=== PATIENT | male | born 1965 | race African-American/Black ===

== ENCOUNTER 2018-01-10 13:23 | Emergency (ER) | payer MEDICAID ==
[~2018-01-10] VITALS: Ht 177.8 cm; Wt 80.0 kg
[2018-01-10] MEDS ORDERED: AMLO2.5T45 PO (13:29)
[2018-01-10 15:43] LABS: BASOPHILS % 1.3 % (0.0-2.0); EOSINOPHILS % 0.8 % (0.0-5.0); HEMATOCRIT. 41.4 % (42.0-52.0); HEMOGLOBIN. 13.4 g/dL (14.0-18.0); LYMPHOCYTES % 42.3 % (20.0-50.0); MEAN CORPUSCULAR HEMOGLOBIN 24.4 pg (28.0-32.0); MEAN CORPUSCULAR VOLUME 75.6 fL (80.0-94.0); MEAN PLATELET VOLUME 7.5 fl (7.4-10.4); MONOCYTES % 10.8 % (2.0-8.0); NEUTROPHILS % 44.8 % (40.0-76.0); PLATELET 237 x1000/uL (130-400); RED BLOOD CELL COUNT 5.48 mill/uL (4.7-6.1); RED CELL DISTRIBUTION WIDTH 16.7 % (11.6-14.6)
[2018-01-10 15:48] LABS: CHLORIDE 100 mEq/L (98-107)
[2018-01-10 15:49] LABS: PROTHROMBIN TIME 9.9 sec (9.4-11.6)
[2018-01-10 15:53] LABS: ETHANOL BLOOD 266 mg/dL
[2018-01-10] MEDS ORDERED: IBUPROFEN 600MG TABLET PO STA (19:05)
[2018-01-10 20:54] VITALS: BP 139/60
== END 2018-01-10 20:50 | disposition home or self-care (01) ==
LOC: ER 13:44
DX: R07.89 Other chest pain (principal); T51.0X1A Toxic effect of ethanol, accidental (unintentional), initial encounter; I25.2 Old myocardial infarction; D57.1 Sickle-cell disease without crisis; R94.31 Abnormal electrocardiogram [ECG] [EKG]; Y90.8 Blood alcohol level of 240 mg/100 ml or more; Y92.018 Other place in single-family (private) house as the place of occurrence of the external cause
CPT/HCPCS: 36415; 71045; 80053; 83880; 84484; 85025; 85044; 85610; 93005; 99285; G0482; Z7610

== ENCOUNTER 2018-01-19 13:05 | Emergency (ER) | payer MEDICAID ==
[~2018-01-19] VITALS: Ht 172.7 cm; Wt 75.0 kg
[~2018-01-19 13:05] MED LIST: AMLO2.5T45 PO
[2018-01-19 13:07] VITALS: BP 127/86
== END 2018-01-19 18:55 | disposition left against medical advice (07) ==
LOC: ER 13:27
DX: R11.0 Nausea (principal); Z53.21 Procedure and treatment not carried out due to patient leaving prior to being seen by health care provider

== ENCOUNTER 2018-06-15 14:43 | Emergency (ER) | payer MEDICAID ==
[~2018-06-15] VITALS: Ht 180.3 cm; Wt 76.0 kg
[2018-06-15 14:47] VITALS: BP 127/96
== END 2018-06-15 15:25 | disposition left against medical advice (07) ==
LOC: ER 15:16
DX: Z53.21 Procedure and treatment not carried out due to patient leaving prior to being seen by health care provider (principal)

== ENCOUNTER 2018-06-17 10:02 | Emergency (ER) | payer MEDICAID ==
[~2018-06-17] VITALS: Ht 175.3 cm; Wt 78.0 kg
[2018-06-17 10:07] VITALS: BP 137/96
== END 2018-06-17 11:10 | disposition left against medical advice (07) ==
LOC: ER 11:10
DX: F10.129 Alcohol abuse with intoxication, unspecified (principal); Z53.21 Procedure and treatment not carried out due to patient leaving prior to being seen by health care provider

== ENCOUNTER 2018-06-17 11:22 | Emergency (ER) | payer MEDICAID ==
[~2018-06-17] VITALS: Ht 175.3 cm; Wt 70.0 kg
[2018-06-17] MEDS ORDERED: SODIUM CHLORIDE 0.9% 1,000 ML IV ONE (11:45)
[2018-06-17 13:16] VITALS: BP 132/76
[2018-06-17 13:53] LABS: *AMPHETAMINES SCREEN URINE NEGATIVE (NEGATIVE); *BARBITURATES SCREEN URINE NEGATIVE (NEGATIVE); *BENZODIAZEPINES SCREEN URINE NEGATIVE (NEGATIVE); *COCAINE SCREEN URINE NEGATIVE (NEGATIVE); METHADONE URINE SCREEN NEGATIVE (NEGATIVE)
[2018-06-17 13:54] LABS: CANNABINOID URINE SCREEN NEGATIVE (NEGATIVE); OPIATES URINE SCREEN NEGATIVE (NEGATIVE); PHENCYCLIDINE URINE SCREEN NEGATIVE (NEGATIVE)
== END 2018-06-17 13:30 | disposition left against medical advice (07) ==
LOC: ER 11:22
DX: F10.129 Alcohol abuse with intoxication, unspecified (principal); I10 Essential (primary) hypertension; D57.1 Sickle-cell disease without crisis; Y90.8 Blood alcohol level of 240 mg/100 ml or more
CPT/HCPCS: 36415; 80305; 99284; G0482; J7030

== ENCOUNTER 2018-06-28 11:03 | Emergency (ER) | payer MEDICAID ==
[~2018-06-28] VITALS: Ht 170.2 cm; Wt 75.0 kg
[2018-06-28] MEDS: SODIUM CHLORIDE 0.9% 1,000 ML IV ONE ×2 (11:36→12:02)
[2018-06-28] MEDS: ONDANSETRON HCL 4MG/2ML INJ IV STA ×2 (11:36→12:02)
[2018-06-28 12:08] LABS: BASOPHILS % 1.4 % (0.0-2.0); EOSINOPHILS % 0.2 % (0.0-5.0); HEMOGLOBIN. 12.1 g/dL (14.0-18.0); LYMPHOCYTES % 36.3 % (20.0-50.0); MEAN CORPUSCULAR HEMOGLOBIN 24.7 pg (28.0-32.0); MEAN CORPUSCULAR VOLUME 75.4 fL (80.0-94.0); MEAN PLATELET VOLUME 7.5 fl (7.4-10.4); NEUTROPHILS % 53.1 % (40.0-76.0); PLATELET 281 x1000/uL (130-400); RED BLOOD CELL COUNT 4.91 mill/uL (4.7-6.1); RED CELL DISTRIBUTION WIDTH 17.7 % (11.6-14.6)
[2018-06-28 12:15] LABS: CHLORIDE 104 mEq/L (98-107); CLARITY URINE CLEAR (CLEAR); COLOR URINE YELLOW (YELLOW); KETONES URINE NEGATIVE (NEGATIVE); LEUKOCYTE ESTERASE URINE TRACE (NEGATIVE); NITRITE URINE NEGATIVE (NEGATIVE); OCCULT BLOOD URINE 1+ (NEGATIVE); PH URINE 5.5 (4.5-8.0); PROTEIN URINE TRACE (NEGATIVE); SPECIFIC GRAVITY URINE 1.004 (1.005-1.030); UROBILINOGEN URINE 0.2 E.U./dL (0.2-1.0)
[2018-06-28 12:17] LABS: INR 0.9; PROTHROMBIN TIME 9.5 sec (9.1-11.1)
[2018-06-28 12:40] LABS: ETHANOL BLOOD 332 mg/dL
[2018-06-28] MEDS ORDERED: IOHEXOL-300 100 ML BOTTLE ONE (14:34)
[2018-06-28] MEDS ORDERED: ACETAMINOPHEN 325MG TABLET PO NR (17:00)
[2018-06-28 17:15] VITALS: BP 130/85
== END 2018-06-28 17:30 | disposition home or self-care (01) ==
LOC: ER 11:14
DX: R07.9 Chest pain, unspecified (principal); R10.9 Unspecified abdominal pain; R51 Headache; F10.129 Alcohol abuse with intoxication, unspecified; I10 Essential (primary) hypertension; F17.210 Nicotine dependence, cigarettes, uncomplicated; R11.2 Nausea with vomiting, unspecified; W19.XXXA Unspecified fall, initial encounter; Y93.89 Activity, other specified; Y92.89 Other specified places as the place of occurrence of the external cause; Y99.8 Other external cause status
CPT/HCPCS: 36415; 70450; 71260; 74177; 80053; 81003; 83690; 84484; 85025; 85610; 93005; 96361; 96374; 99285; G0482; J2405; J7030; Q9967; Z7610

== ENCOUNTER 2018-07-21 09:25 | Emergency (ER) | payer MEDICAID ==
[~2018-07-21] VITALS: Ht 172.7 cm; Wt 75.0 kg
[2018-07-21 09:27] VITALS: BP 148/97
== END 2018-07-21 10:43 | disposition left against medical advice (07) ==
LOC: ER 09:33
DX: Z53.21 Procedure and treatment not carried out due to patient leaving prior to being seen by health care provider (principal)

== ENCOUNTER 2018-07-21 11:19 | Emergency (ER) | payer MEDICAID ==
[~2018-07-21] VITALS: Ht 172.7 cm; Wt 70.0 kg
[2018-07-21 11:23] VITALS: BP 135/94
== END 2018-07-21 13:30 | disposition left against medical advice (07) ==
LOC: ER 11:56
DX: Z53.21 Procedure and treatment not carried out due to patient leaving prior to being seen by health care provider (principal)

== ENCOUNTER 2018-07-21 14:35 | Emergency (ER) | payer MEDICAID ==
[~2018-07-21] VITALS: Ht 172.7 cm; Wt 70.0 kg
[2018-07-21 14:42] VITALS: BP 138/75
== END 2018-07-21 17:06 | disposition left against medical advice (07) ==
LOC: ER 15:03
DX: Z53.21 Procedure and treatment not carried out due to patient leaving prior to being seen by health care provider (principal)

== ENCOUNTER 2018-07-21 19:04 | Inpatient (IN) | payer MEDICAID ==
[~2018-07-21] VITALS: Ht 167.6 cm; Wt 69.9 kg
[2018-07-21] MEDS ORDERED: SODIUM CHLORIDE 0.9% 1,000 ML IV ONE (20:56)
[2018-07-21 22:04] LABS: PROTHROMBIN TIME 9.6 sec (9.1-11.1)
[2018-07-21 22:08] LABS: CHLORIDE 105 mEq/L (98-107)
[2018-07-21 22:09] LABS: BASOPHILS % 1.8 % (0.0-2.0); EOSINOPHILS % 0.6 % (0.0-5.0); HEMATOCRIT. 36.6 % (42.0-52.0); HEMOGLOBIN. 11.7 g/dL (14.0-18.0); LYMPHOCYTES % 26.2 % (20.0-50.0); MEAN CORPUSCULAR HEMOGLOBIN 24.4 pg (28.0-32.0); MEAN CORPUSCULAR VOLUME 76.7 fL (80.0-94.0); MEAN PLATELET VOLUME 7.2 fl (7.4-10.4); MONOCYTES % 6.7 % (2.0-8.0); NEUTROPHILS % 64.7 % (40.0-76.0); PLATELET 289 x1000/uL (130-400); RED BLOOD CELL COUNT 4.77 mill/uL (4.7-6.1); RED CELL DISTRIBUTION WIDTH 17.6 % (11.6-14.6)
[2018-07-21 22:16] LABS: ETHANOL BLOOD 352 mg/dL
[2018-07-22] MEDS ORDERED: SODIUM CHLORIDE 0.9% 1,000 ML IV ONE (03:00)
[2018-07-22] MEDS ORDERED: ASPIRIN 81MG TABLET PO ONE (03:00)
[2018-07-22 03:10] LABS: CLARITY URINE CLEAR (CLEAR); COLOR URINE YELLOW (YELLOW); KETONES URINE NEGATIVE (NEGATIVE); LEUKOCYTE ESTERASE URINE NEGATIVE (NEGATIVE); NITRITE URINE NEGATIVE (NEGATIVE); OCCULT BLOOD URINE 1+ (NEGATIVE); PROTEIN URINE TRACE (NEGATIVE); UROBILINOGEN URINE 0.2 E.U./dL (0.2-1.0)
[2018-07-22 03:31] LABS: *AMPHETAMINES SCREEN URINE NEGATIVE (NEGATIVE); *BARBITURATES SCREEN URINE NEGATIVE (NEGATIVE); *BENZODIAZEPINES SCREEN URINE NEGATIVE (NEGATIVE); *COCAINE SCREEN URINE PRESUMTIVE POSITIVE (NEGATIVE)
[2018-07-22 03:32] LABS: CANNABINOID URINE SCREEN NEGATIVE (NEGATIVE); METHADONE URINE SCREEN NEGATIVE (NEGATIVE); OPIATES URINE SCREEN NEGATIVE (NEGATIVE); PHENCYCLIDINE URINE SCREEN NEGATIVE (NEGATIVE)
[2018-07-22 05:35] VITALS: BP 140/86
[2018-07-22 06:18] VITALS: BP 140/86
[2018-07-22] MEDS ORDERED: ACETAMINOPHEN 325MG TABLET PO PRN (07:30)
[2018-07-22] MEDS ORDERED: LORAZEPAM 2MG/ML CPJ IV PRN (07:30)
[2018-07-22] MEDS ORDERED: IPRATROPIUM/ALBUTEROL 0.5-3(2.5)MG/3ML NEB INH PRN (07:30)
[2018-07-22] MEDS ORDERED: CLONIDINE 0.1MG TABLET PO PRN (07:30)
[2018-07-22 08:00] VITALS: BP 156/89
[2018-07-22] MEDS: ONDANSETRON HCL 4MG/2ML INJ IV PRN ×2 (08:56→19:55)
[2018-07-22] MEDS: HYDROCODONE/ACETAMINOPHEN 5/325MG TABLET PO PRN ×3 (08:57→17:37)
[2018-07-22] MEDS: LORAZEPAM 2MG/ML CPJ IV PRN ×2 (08:57→19:55)
[2018-07-22] MEDS ORDERED: MVI, ADULT NO.1 10 ML, FOLIC ACID 1 MG, THIAMINE HCL 100 MG in SODIUM CHLORIDE 0.9% 1,0... IV ONE ×4 (10:00)
[2018-07-22 11:08] LABS: VITAMIN B12 SERUM 487 pg/mL (211-911)
[2018-07-22 12:00] VITALS: BP 158/134
[2018-07-22] MEDS: AMLODIPINE 2.5MG TABLET PO SCH ×2 (12:20→20:32)
[2018-07-22 12:21] LABS: FERRITIN 229 ng/mL (22-322)
[2018-07-22 12:32] LABS: HEPATITIS B SURFACE ANTIGEN NEGATIVE
[2018-07-22] MEDS: CHLORDIAZEPOXIDE 25MG CAPSULE PO SCH ×2 (12:53→21:44)
[2018-07-22 12:59] LABS: HEPATITIS B CORE AB IGM NEGATIVE
[2018-07-22 13:01] LABS: HEPATITIS A AB IGM NEGATIVE (NEGATIVE)
[2018-07-22 13:32] LABS: AMMONIA 27 uMol/L (<32)
[2018-07-22 16:00] VITALS: BP 149/91
[2018-07-22 20:00] VITALS: BP 117/87
[2018-07-23] VITALS: BP 145/97
[2018-07-23 04:00] VITALS: BP 142/99
[2018-07-23] MEDS: CHLORDIAZEPOXIDE 25MG CAPSULE PO SCH (05:29)
[2018-07-23] MEDS: HYDROCODONE/ACETAMINOPHEN 5/325MG TABLET PO PRN (06:27)
[2018-07-23 06:48] VITALS: BP_SYST 109; BP_SYST 122; BP_DIAS 80; BP_DIAS 83; BP_DIAS 93
[2018-07-23 07:42] LABS: BASOPHILS % 1.2 % (0.0-2.0); EOSINOPHILS % 2.5 % (0.0-5.0); HEMATOCRIT. 35.1 % (42.0-52.0); HEMOGLOBIN. 11.3 g/dL (14.0-18.0); LYMPHOCYTES % 23.5 % (20.0-50.0); MEAN CORPUSCULAR HEMOGLOBIN 24.8 pg (28.0-32.0); MEAN PLATELET VOLUME 7.9 fl (7.4-10.4); MONOCYTES % 13.3 % (2.0-8.0); NEUTROPHILS % 59.5 % (40.0-76.0); PLATELET 277 x1000/uL (130-400); RED BLOOD CELL COUNT 4.57 mill/uL (4.7-6.1); RED CELL DISTRIBUTION WIDTH 17.4 % (11.6-14.6)
[2018-07-23 08:00] VITALS: BP 137/95
[2018-07-23] MEDS: AMLODIPINE 2.5MG TABLET PO SCH (09:00)
[2018-07-23 09:49] LABS: CHLORIDE 100 mEq/L (98-107)
[2018-07-23 10:01] LABS: HDL CHOLESTEROL 119 mg/dL (40-59); LDL CHOLESTEROL 53 mg/dL (5-100)
== END 2018-07-23 09:05 | disposition left against medical advice (07) | DRG 469 ==
LOC: ER 19:04 → 8WST 07-22 02:00 → ENRESERV 07-22 02:44
PROVIDERS: ADMIT Internal Medicine; ATTEND Internal Medicine
DX: N17.9 Acute kidney failure, unspecified (principal); F10.231 Alcohol dependence with withdrawal delirium; E87.2 Acidosis; G90.8 Other disorders of autonomic nervous system; D57.1 Sickle-cell disease without crisis; Y90.9 Presence of alcohol in blood, level not specified; I10 Essential (primary) hypertension; F14.10 Cocaine abuse, uncomplicated; Z72.0 Tobacco use; Z53.21 Procedure and treatment not carried out due to patient leaving prior to being seen by health care provider; F10.129 Alcohol abuse with intoxication, unspecified
CPT/HCPCS: 36415; 70551; 71045; 80048; 80061; 80305; 82140; 82270; 82550; 82553; 82607; 82728; 82746; 83540; 83550; 83605; 83615; 83735; 83880; 84145; 84443; 84484; 85044; 86705; 86709; 86803; 87340; 93005; 93306; 93880; 96360; 96361; 99285; G0482; J2060; J2405; J3411; J3490; J7030

== ENCOUNTER 2018-09-17 00:09 | Emergency (ER) | payer MEDICAID ==
[~2018-09-17] VITALS: Ht 182.9 cm; Wt 82.0 kg
[2018-09-17] MEDS ORDERED: ACETAMINOPHEN 325MG TABLET PO ONE (00:45)
[2018-09-17 01:45] LABS: BASOPHILS % 1.1 % (0.0-2.0); HEMOGLOBIN. 11.7 g/dL (14.0-18.0); LYMPHOCYTES % 12.9 % (20.0-50.0); MEAN CORPUSCULAR VOLUME 76.8 fL (80.0-94.0); MEAN PLATELET VOLUME 8.1 fl (7.4-10.4); MONOCYTES % 8.1 % (2.0-8.0); NEUTROPHILS % 77.9 % (40.0-76.0); PLATELET 281 x1000/uL (130-400); RED BLOOD CELL COUNT 4.69 mill/uL (4.7-6.1); RED CELL DISTRIBUTION WIDTH 16.7 % (11.6-14.6)
[2018-09-17 01:51] LABS: CHLORIDE 98 mEq/L (98-107)
[2018-09-17 02:10] LABS: ETHANOL BLOOD 372 mg/dL
[2018-09-17] MEDS ORDERED: IBUPROFEN 400MG TABLET PO ONE (04:30)
[2018-09-17 07:09] VITALS: BP 119/81
== END 2018-09-17 07:10 | disposition home or self-care (01) ==
LOC: ER 00:09
DX: F10.229 Alcohol dependence with intoxication, unspecified (principal); Y90.8 Blood alcohol level of 240 mg/100 ml or more; M54.5 Low back pain; R07.89 Other chest pain; F17.200 Nicotine dependence, unspecified, uncomplicated; F14.10 Cocaine abuse, uncomplicated; I10 Essential (primary) hypertension
CPT/HCPCS: 36415; 71045; 80053; 84484; 85025; 93005; 99284; G0482

== ENCOUNTER 2018-10-07 03:12 | Emergency (ER) | payer MEDICAID ==
[~2018-10-07] VITALS: Ht 177.8 cm; Wt 77.0 kg
[2018-10-07] MEDS ORDERED: SODIUM CHLORIDE 0.9% 1,000 ML IV ONE (04:19)
[2018-10-07] MEDS ORDERED: ONDANSETRON HCL 4MG/2ML INJ IV STA (04:19)
[2018-10-07] MEDS ORDERED: FAMOTIDINE 20MG/2ML VIAL IV ONE (04:30)
[2018-10-07 05:02] LABS: BASOPHILS % 0.8 % (0.0-2.0); EOSINOPHILS % 0.2 % (0.0-5.0); HEMOGLOBIN. 12.1 g/dL (14.0-18.0); LYMPHOCYTES % 25.5 % (20.0-50.0); MEAN CORPUSCULAR HEMOGLOBIN 24.8 pg (28.0-32.0); MEAN CORPUSCULAR VOLUME 77.8 fL (80.0-94.0); MEAN PLATELET VOLUME 7.5 fl (7.4-10.4); MONOCYTES % 11.9 % (2.0-8.0); NEUTROPHILS % 61.6 % (40.0-76.0); PLATELET 271 x1000/uL (130-400); RED BLOOD CELL COUNT 4.88 mill/uL (4.7-6.1); RED CELL DISTRIBUTION WIDTH 16.5 % (11.6-14.6)
[2018-10-07 05:09] LABS: CHLORIDE 108 mEq/L (98-107)
[2018-10-07 05:57] LABS: ETHANOL BLOOD 329 mg/dL
[2018-10-07] MEDS ORDERED: FOLIC ACID 1 MG, THIAMINE HCL 100 MG, MVI, ADULT NO.1 10 ML in DEXTROSE 5% WATER 1,000 ML IV ONE ×4 (06:30)
[2018-10-07] MEDS ORDERED: ACETAMINOPHEN 325MG TABLET PO ONE (09:45)
[2018-10-07 10:55] VITALS: BP 140/88
== END 2018-10-07 11:08 | disposition home or self-care (01) ==
LOC: ER 03:12
DX: R07.89 Other chest pain (principal); F10.229 Alcohol dependence with intoxication, unspecified; F14.10 Cocaine abuse, uncomplicated; E11.9 Type 2 diabetes mellitus without complications; I10 Essential (primary) hypertension; D57.1 Sickle-cell disease without crisis; Z79.899 Other long term (current) drug therapy; Y90.8 Blood alcohol level of 240 mg/100 ml or more
CPT/HCPCS: 36415; 71045; 80053; 83880; 84484; 85025; 93005; 96365; 96366; 96375; 99284; G0482; J2405; J3411; J3490; J7030; J7070

== ENCOUNTER 2019-02-17 14:10 | Emergency (ER) | payer MEDICAID | END 2019-02-17 14:20 | disposition left against medical advice (07) | LOC: ER 14:10 | DX: F10.20 Alcohol dependence, uncomplicated (principal); Z53.21 Procedure and treatment not carried out due to patient leaving prior to being seen by health care provider; Y90.9 Presence of alcohol in blood, level not specified ==

== ENCOUNTER 2019-05-12 20:19 | Emergency (ER) | payer MEDICAID ==
[~2019-05-12] VITALS: Ht 175.3 cm; Wt 73.0 kg
[2019-05-12] MEDS ORDERED: LEVETIRACETAM 1000MG/100ML 100 ML IV ONE (21:15)
[2019-05-12 21:39] LABS: BASOPHILS % 1.1 % (0.0-2.0); EOSINOPHILS % 4.5 % (0.0-5.0); HEMOGLOBIN. 11.7 g/dL (14.0-18.0); LYMPHOCYTES % 20.3 % (20.0-50.0); MEAN CORPUSCULAR HEMOGLOBIN 25.2 pg (28.0-32.0); MEAN CORPUSCULAR VOLUME 77.6 fL (80.0-94.0); MONOCYTES % 9.5 % (2.0-8.0); NEUTROPHILS % 64.6 % (40.0-76.0); PLATELET 299 x1000/uL (130-400); RED BLOOD CELL COUNT 4.64 mill/uL (4.7-6.1); RED CELL DISTRIBUTION WIDTH 16.2 % (11.6-14.6)
[2019-05-12 21:44] LABS: CHLORIDE 110 mEq/L (98-107)
[2019-05-12 21:57] LABS: ETHANOL BLOOD 328 mg/dL
[2019-05-12] MEDS ORDERED: DIPHENHYDRAMINE 50MG/ML VIAL IV ONE (22:15)
[2019-05-13 01:14] VITALS: BP 123/85
== END 2019-05-13 01:18 | disposition home or self-care (01) ==
LOC: ER 20:19
DX: G40.909 Epilepsy, unspecified, not intractable, without status epilepticus (principal); Z91.14 Patient's other noncompliance with medication regimen; F10.129 Alcohol abuse with intoxication, unspecified; Y90.8 Blood alcohol level of 240 mg/100 ml or more; F14.10 Cocaine abuse, uncomplicated; F11.10 Opioid abuse, uncomplicated; F17.210 Nicotine dependence, cigarettes, uncomplicated; Z71.6 Tobacco abuse counseling; I10 Essential (primary) hypertension
CPT/HCPCS: 36415; 80053; 80320; 85025; 96365; 96375; 99283; 99406; J1200; J1953; G0480

== ENCOUNTER 2019-06-25 11:25 | Emergency (ER) | payer MEDICAID ==
[~2019-06-25] VITALS: Ht 185.4 cm; Wt 82.0 kg
[2019-06-25] MEDS ORDERED: LEVETIRACETAM 1000MG/100ML 100 ML IV ONE (13:30)
[2019-06-25 14:47] LABS: CLARITY URINE CLEAR (CLEAR); COLOR URINE YELLOW (YELLOW); KETONES URINE NEGATIVE (NEGATIVE); LEUKOCYTE ESTERASE URINE NEGATIVE (NEGATIVE); NITRITE URINE NEGATIVE (NEGATIVE); OCCULT BLOOD URINE 1+ (NEGATIVE); PROTEIN URINE 1+ (NEGATIVE); SPECIFIC GRAVITY URINE 1.008 (1.005-1.030); UROBILINOGEN URINE 0.2 E.U./dL (0.2-1.0)
[2019-06-25 14:59] LABS: BASOPHILS % 0.6 % (0.0-2.0); EOSINOPHILS % 1.5 % (0.0-5.0); HEMATOCRIT. 38.1 % (42.0-52.0); HEMOGLOBIN. 12.3 g/dL (14.0-18.0); LYMPHOCYTES % 23.6 % (20.0-50.0); MEAN CORPUSCULAR HEMOGLOBIN 25.1 pg (28.0-32.0); MEAN PLATELET VOLUME 7.4 fl (7.4-10.4); NEUTROPHILS % 69.3 % (40.0-76.0); PLATELET 321 x1000/uL (130-400); RED BLOOD CELL COUNT 4.88 mill/uL (4.7-6.1); RED CELL DISTRIBUTION WIDTH 16.2 % (11.6-14.6)
[2019-06-25 15:05] LABS: CHLORIDE 107 mEq/L (98-107)
[2019-06-25 15:19] LABS: ETHANOL BLOOD 323 mg/dL
[2019-06-25 15:31] LABS: *AMPHETAMINES SCREEN URINE NEGATIVE (NEGATIVE); PHENCYCLIDINE URINE SCREEN NEGATIVE (NEGATIVE)
[2019-06-25 15:32] LABS: *BARBITURATES SCREEN URINE NEGATIVE (NEGATIVE)
[2019-06-25 15:33] LABS: *BENZODIAZEPINES SCREEN URINE NEGATIVE (NEGATIVE)
[2019-06-25 15:34] VITALS: BP 142/83
[2019-06-25 15:34] LABS: *COCAINE SCREEN URINE NEGATIVE (NEGATIVE); METHADONE URINE SCREEN NEGATIVE (NEGATIVE)
[2019-06-25 15:35] LABS: OPIATES URINE SCREEN NEGATIVE (NEGATIVE)
[2019-06-25 15:36] LABS: CANNABINOID URINE SCREEN NEGATIVE (NEGATIVE)
== END 2019-06-25 15:34 | disposition home or self-care (01) ==
LOC: ER 11:31
DX: R56.9 Unspecified convulsions (principal); F11.10 Opioid abuse, uncomplicated; F14.10 Cocaine abuse, uncomplicated; F31.9 Bipolar disorder, unspecified; F41.9 Anxiety disorder, unspecified; I10 Essential (primary) hypertension; Z88.0 Allergy status to penicillin; Z79.899 Other long term (current) drug therapy; Z99.2 Dependence on renal dialysis
CPT/HCPCS: 36415; 80053; 80305; 80320; 81003; 85025; 96365; 96366; 99283; J1953; G0480

== ENCOUNTER 2019-09-01 14:17 | Emergency (ER) | payer MEDICAID | END 2019-09-01 15:15 | disposition left against medical advice (07) | LOC: ER 14:17 | DX: R10.9 Unspecified abdominal pain (principal); Z53.21 Procedure and treatment not carried out due to patient leaving prior to being seen by health care provider ==

== ENCOUNTER 2019-11-12 19:38 | Emergency (ER) | payer MEDICAID ==
[~2019-11-12] VITALS: Ht 175.3 cm; Wt 73.0 kg
[2019-11-12 23:18] VITALS: BP 134/109
[2019-11-13 00:23] LABS: BASOPHILS % 2.3 % (0.0-2.0); EOSINOPHILS % 1.9 % (0.0-5.0); HEMATOCRIT. 33.7 % (42.0-52.0); HEMOGLOBIN. 11.5 g/dL (14.0-18.0); LYMPHOCYTES % 45.4 % (20.0-50.0); MEAN CORPUSCULAR HEMOGLOBIN 26.3 pg (28.0-32.0); MEAN PLATELET VOLUME 6.7 fl (7.4-10.4); MONOCYTES % 11.5 % (2.0-8.0); NEUTROPHILS % 38.9 % (40.0-76.0); PLATELET 554 x1000/uL (130-400); RED BLOOD CELL COUNT 4.38 mill/uL (4.7-6.1); RED CELL DISTRIBUTION WIDTH 16.8 % (11.6-14.6)
[2019-11-13 00:29] LABS: CHLORIDE 110 mEq/L (98-107); INR 0.9; PROTHROMBIN TIME 10.2 sec (9.6-11.0)
[2019-11-13 00:46] LABS: ETHANOL BLOOD 318 mg/dL
[2019-11-13 00:54] LABS: *AMPHETAMINES SCREEN URINE NEGATIVE (NEGATIVE); *BARBITURATES SCREEN URINE NEGATIVE (NEGATIVE); *BENZODIAZEPINES SCREEN URINE NEGATIVE (NEGATIVE); *COCAINE SCREEN URINE PRESUMTIVE POSITIVE (NEGATIVE); METHADONE URINE SCREEN NEGATIVE (NEGATIVE); OPIATES URINE SCREEN NEGATIVE (NEGATIVE)
[2019-11-13 00:55] LABS: CANNABINOID URINE SCREEN NEGATIVE (NEGATIVE); PHENCYCLIDINE URINE SCREEN NEGATIVE (NEGATIVE)
== END 2019-11-13 05:39 | disposition home or self-care (01) ==
LOC: ER 19:38
DX: F10.229 Alcohol dependence with intoxication, unspecified (principal); F14.10 Cocaine abuse, uncomplicated; R55 Syncope and collapse; R94.5 Abnormal results of liver function studies; R29.1 Meningismus; F11.10 Opioid abuse, uncomplicated; I10 Essential (primary) hypertension; Z98.890 Other specified postprocedural states; Z88.0 Allergy status to penicillin; W18.39XA Other fall on same level, initial encounter; Y93.89 Activity, other specified; Y92.89 Other specified places as the place of occurrence of the external cause; Y99.8 Other external cause status; Y90.8 Blood alcohol level of 240 mg/100 ml or more
CPT/HCPCS: 36415; 71045; 80053; 80305; 80320; 84484; 85025; 93005; 99285; G0480

== ENCOUNTER 2019-11-15 00:17 | Emergency (ER) | payer MEDICAID ==
[~2019-11-15] VITALS: Ht 175.3 cm; Wt 73.0 kg
[2019-11-15] MEDS ORDERED: ACETAMINOPHEN 500MG TABLET PO SCH (00:51)
[2019-11-15 01:02] VITALS: BP 132/90
== END 2019-11-15 01:02 | disposition home or self-care (01) ==
LOC: ER 00:17
DX: M79.641 Pain in right hand (principal); I10 Essential (primary) hypertension; F14.10 Cocaine abuse, uncomplicated; F11.10 Opioid abuse, uncomplicated; Z88.0 Allergy status to penicillin
CPT/HCPCS: 99282

== ENCOUNTER 2019-11-30 09:01 | Emergency (ER) | payer MEDICAID ==
[~2019-11-30] VITALS: Ht 188 cm; Wt 80.0 kg
[2019-11-30 09:05] VITALS: BP 146/100
== END 2019-11-30 09:25 | disposition left against medical advice (07) ==
LOC: ER 09:01
DX: F10.20 Alcohol dependence, uncomplicated (principal); R53.1 Weakness; I10 Essential (primary) hypertension; Y90.9 Presence of alcohol in blood, level not specified
CPT/HCPCS: 99283

== ENCOUNTER 2019-12-04 02:40 | Emergency (ER) | payer MEDICAID, OTHER ==
[~2019-12-04] VITALS: Ht 175.3 cm; Wt 68.0 kg
[2019-12-04 02:59] VITALS: BP 123/90
== END 2019-12-04 07:33 | disposition left against medical advice (07) ==
LOC: ER 02:40
DX: Z53.21 Procedure and treatment not carried out due to patient leaving prior to being seen by health care provider (principal)

== ENCOUNTER 2019-12-21 19:08 | Emergency (ER) | payer MEDICAID, OTHER ==
[~2019-12-21] VITALS: Ht 175.3 cm; Wt 73.8 kg
[2019-12-21] MEDS ORDERED: IBUPROFEN 600MG TABLET PO STA (20:24)
[2019-12-21 20:46] LABS: BASOPHILS % 1.2 % (0.0-2.0); EOSINOPHILS % 4.5 % (0.0-5.0); HEMATOCRIT. 36.6 % (42.0-52.0); LYMPHOCYTES % 45.6 % (20.0-50.0); MEAN CORPUSCULAR HEMOGLOBIN 25.5 pg (28.0-32.0); MEAN CORPUSCULAR VOLUME 77.9 fL (80.0-94.0); MEAN PLATELET VOLUME 7.3 fl (7.4-10.4); MONOCYTES % 12.7 % (2.0-8.0); PLATELET 244 x1000/uL (130-400); RED BLOOD CELL COUNT 4.71 mill/uL (4.7-6.1); RED CELL DISTRIBUTION WIDTH 16.5 % (11.6-14.6)
[2019-12-21 20:47] LABS: CHLORIDE 104 mEq/L (98-107)
[2019-12-21 21:00] LABS: ETHANOL BLOOD 433 mg/dL
[2019-12-21 21:44] LABS: CANNABINOID URINE SCREEN NEGATIVE (NEGATIVE); OPIATES URINE SCREEN NEGATIVE (NEGATIVE); PHENCYCLIDINE URINE SCREEN NEGATIVE (NEGATIVE)
[2019-12-21 21:45] LABS: *AMPHETAMINES SCREEN URINE NEGATIVE (NEGATIVE); *BARBITURATES SCREEN URINE NEGATIVE (NEGATIVE); *BENZODIAZEPINES SCREEN URINE NEGATIVE (NEGATIVE); *COCAINE SCREEN URINE NEGATIVE (NEGATIVE); METHADONE URINE SCREEN NEGATIVE (NEGATIVE)
[2019-12-21 23:38] LABS: ETHANOL BLOOD 358 mg/dL
[2019-12-22 06:19] VITALS: BP 121/76
== END 2019-12-22 08:15 | disposition home or self-care (01) ==
LOC: ER 19:08
DX: T51.8X1A Toxic effect of other alcohols, accidental (unintentional), initial encounter (principal); F17.290 Nicotine dependence, other tobacco product, uncomplicated; I10 Essential (primary) hypertension; Y92.89 Other specified places as the place of occurrence of the external cause; Z98.890 Other specified postprocedural states; Z59.0 Homelessness; Z88.0 Allergy status to penicillin
CPT/HCPCS: 36415; 71045; 80053; 80305; 80320; 84484; 85025; 93005; 99285; G0480

== ENCOUNTER 2019-12-27 11:11 | Emergency (ER) | payer OTHER ==
[~2019-12-27] VITALS: Ht 172.7 cm; Wt 70.0 kg
[2019-12-27 11:22] VITALS: BP 107/82
[2019-12-27] MEDS ORDERED: ASPIRIN 81MG TABLET PO ONE (12:15)
== END 2019-12-27 13:51 | disposition home or self-care (01) ==
LOC: ER 11:11
DX: R07.89 Other chest pain (principal); M79.672 Pain in left foot; I10 Essential (primary) hypertension; F14.10 Cocaine abuse, uncomplicated; Z59.0 Homelessness
CPT/HCPCS: 99281

== ENCOUNTER 2020-01-28 21:50 | Emergency (ER) | payer OTHER | END 2020-01-29 | disposition left against medical advice (07) | LOC: ER 23:34 | DX: Z53.21 Procedure and treatment not carried out due to patient leaving prior to being seen by health care provider (principal) ==

== ENCOUNTER 2020-02-16 02:38 | Emergency (ER) | payer OTHER ==
[~2020-02-16] VITALS: Ht 175.3 cm; Wt 73.0 kg
[2020-02-16] MEDS ORDERED: ASPIRIN 81MG TABLET PO ONE (03:30)
[2020-02-16 03:58] LABS: CHLORIDE 108 mEq/L (98-107)
[2020-02-16 04:16] LABS: BASOPHILS % 2.5 % (0.0-2.0); EOSINOPHILS % 13.2 % (0.0-5.0); HEMATOCRIT. 34.3 % (42.0-52.0); HEMOGLOBIN. 11.4 g/dL (14.0-18.0); MEAN CORPUSCULAR HEMOGLOBIN 26.2 pg (28.0-32.0); MEAN CORPUSCULAR VOLUME 79.1 fL (80.0-94.0); MEAN PLATELET VOLUME 7.7 fl (7.4-10.4); NEUTROPHILS % 37.3 % (40.0-76.0); PLATELET 285 x1000/uL (130-400); RED BLOOD CELL COUNT 4.34 mill/uL (4.7-6.1); RED CELL DISTRIBUTION WIDTH 16.3 % (11.6-14.6)
[2020-02-16 04:18] LABS: ETHANOL BLOOD 405 mg/dL
[2020-02-16] MEDS ORDERED: SODIUM CHLORIDE 0.9% 1,000 ML IV ONE (04:31)
[2020-02-16 06:23] LABS: *AMPHETAMINES SCREEN URINE NEGATIVE (NEGATIVE); *BARBITURATES SCREEN URINE NEGATIVE (NEGATIVE); *BENZODIAZEPINES SCREEN URINE NEGATIVE (NEGATIVE); *COCAINE SCREEN URINE PRESUMTIVE POSITIVE (NEGATIVE)
[2020-02-16 06:24] LABS: CANNABINOID URINE SCREEN NEGATIVE (NEGATIVE); METHADONE URINE SCREEN NEGATIVE (NEGATIVE); OPIATES URINE SCREEN NEGATIVE (NEGATIVE); PHENCYCLIDINE URINE SCREEN NEGATIVE (NEGATIVE)
[2020-02-16 07:36] VITALS: BP 130/99
== END 2020-02-16 08:55 | disposition left against medical advice (07) ==
LOC: ER 02:48
DX: F10.129 Alcohol abuse with intoxication, unspecified (principal); R94.5 Abnormal results of liver function studies; R11.2 Nausea with vomiting, unspecified; I10 Essential (primary) hypertension; F14.10 Cocaine abuse, uncomplicated; Z88.0 Allergy status to penicillin; Z79.899 Other long term (current) drug therapy; Y90.8 Blood alcohol level of 240 mg/100 ml or more
CPT/HCPCS: 36415; 71045; 80053; 80305; 80320; 83690; 83880; 84484; 85025; 93005; 96360; 96361; 99285; Z7610; G0480

== ENCOUNTER 2020-03-14 13:35 | Emergency (ER) | payer OTHER ==
[~2020-03-14] VITALS: Ht 177.8 cm; Wt 77.0 kg
[2020-03-14] MEDS ORDERED: SODIUM CHLORIDE 0.9% 1,000 ML IV ONE (16:55)
[2020-03-14] MEDS ORDERED: PERMETHRIN 5% CREAM 60GM TOP ONE (17:00)
[2020-03-14 19:18] LABS: CHLORIDE 100 mEq/L (98-107)
[2020-03-14 19:19] LABS: BASOPHILS % 0.7 % (0.0-2.0); EOSINOPHILS % 6.3 % (0.0-5.0); HEMOGLOBIN. 12.1 g/dL (14.0-18.0); LYMPHOCYTES % 12.1 % (20.0-50.0); MEAN CORPUSCULAR VOLUME 79.2 fL (80.0-94.0); MEAN PLATELET VOLUME 7.9 fl (7.4-10.4); MONOCYTES % 10.6 % (2.0-8.0); NEUTROPHILS % 70.3 % (40.0-76.0); PLATELET 274 x1000/uL (130-400); RED BLOOD CELL COUNT 4.67 mill/uL (4.7-6.1); RED CELL DISTRIBUTION WIDTH 15.5 % (11.6-14.6)
[2020-03-14 20:09] VITALS: BP 122/71
== END 2020-03-14 20:12 | disposition home or self-care (01) ==
LOC: ER 13:35
DX: R07.89 Other chest pain (principal); B86 Scabies; R42 Dizziness and giddiness; I10 Essential (primary) hypertension; F17.210 Nicotine dependence, cigarettes, uncomplicated; Z88.0 Allergy status to penicillin
CPT/HCPCS: 36415; 70450; 71045; 80053; 84484; 85025; 93005; 99285; J7030

== ENCOUNTER 2020-06-12 14:54 | Emergency (ER) | payer OTHER ==
[~2020-06-12] VITALS: Ht 172.7 cm; Wt 80.0 kg
[2020-06-12 14:59] VITALS: BP 141/72
== END 2020-06-12 15:07 | disposition left against medical advice (07) ==
LOC: ER 14:54
DX: G40.909 Epilepsy, unspecified, not intractable, without status epilepticus (principal)
CPT/HCPCS: 93005; 99283

== ENCOUNTER 2020-08-12 20:45 | Emergency (ER) | payer OTHER ==
[~2020-08-12] VITALS: Ht 175.3 cm; Wt 71.0 kg
[2020-08-13] MEDS ORDERED: ACETAMINOPHEN 500MG TABLET PO ONE (00:15)
[2020-08-13 00:48] VITALS: BP 145/97
== END 2020-08-13 05:29 | disposition home or self-care (01) ==
LOC: ER 20:45
DX: M25.551 Pain in right hip (principal); D64.9 Anemia, unspecified; I10 Essential (primary) hypertension; F10.229 Alcohol dependence with intoxication, unspecified; Y90.0 Blood alcohol level of less than 20 mg/100 ml; Z88.0 Allergy status to penicillin
CPT/HCPCS: 99283

== ENCOUNTER 2020-10-03 19:41 | Emergency (ER) | payer MEDICAID, OTHER | END 2020-10-03 20:37 | disposition left against medical advice (07) | LOC: ER 19:41 | DX: Z53.21 Procedure and treatment not carried out due to patient leaving prior to being seen by health care provider (principal) ==

== ENCOUNTER 2020-10-03 21:32 | Emergency (ER) | payer MEDICAID, OTHER | END 2020-10-03 23:51 | disposition home or self-care (01) | LOC: ER 21:32 | DX: Z53.21 Procedure and treatment not carried out due to patient leaving prior to being seen by health care provider (principal) ==

== ENCOUNTER 2020-10-20 01:15 | Emergency (ER) | payer OTHER ==
[~2020-10-20] VITALS: Ht 175.3 cm; Wt 82.0 kg
[2020-10-20 03:17] VITALS: BP 118/92
[2020-10-20] MEDS ORDERED: IBUPROFEN 600MG TABLET PO STA (03:17)
== END 2020-10-20 04:30 | disposition home or self-care (01) ==
LOC: ER 01:15
DX: S20.213A Contusion of bilateral front wall of thorax, initial encounter (principal); I10 Essential (primary) hypertension; G40.909 Epilepsy, unspecified, not intractable, without status epilepticus; F10.20 Alcohol dependence, uncomplicated; D64.9 Anemia, unspecified; Z88.0 Allergy status to penicillin; Z79.899 Other long term (current) drug therapy; Y04.0XXA Assault by unarmed brawl or fight, initial encounter; Y93.89 Activity, other specified; Y92.89 Other specified places as the place of occurrence of the external cause; Y99.8 Other external cause status; Y90.9 Presence of alcohol in blood, level not specified
CPT/HCPCS: 71045; 93005; 99283

== ENCOUNTER 2020-11-16 19:32 | Emergency (ER) | payer OTHER, MEDICAID ==
[~2020-11-16] VITALS: Ht 177.8 cm; Wt 140.0 kg
[2020-11-16] MEDS ORDERED: SODIUM CHLORIDE 0.9% 1,000 ML IV ONE (20:00)
[2020-11-16] MEDS ORDERED: ONDANSETRON HCL 4MG/2ML INJ IV ONE (20:00)
[2020-11-16 20:55] LABS: BASOPHILS % 1.2 % (0.0-2.0); EOSINOPHILS % 1.4 % (0.0-5.0); HEMATOCRIT. 39.4 % (42.0-52.0); HEMOGLOBIN. 12.3 g/dL (14.0-18.0); MEAN CORPUSCULAR HEMOGLOBIN 23.2 pg (28.0-32.0); MEAN CORPUSCULAR VOLUME 74.4 fL (80.0-94.0); MONOCYTES % 7.4 % (2.0-8.0); PLATELET 408 x1000/uL (130-400); RED BLOOD CELL COUNT 5.29 mill/uL (4.7-6.1); RED CELL DISTRIBUTION WIDTH 16.4 % (11.6-14.6)
[2020-11-16 21:06] LABS: CHLORIDE 109 mEq/L (98-107)
[2020-11-16 21:30] LABS: ETHANOL BLOOD 400 mg/dL
[2020-11-16 23:25] LABS: CLARITY URINE CLEAR (CLEAR); COLOR URINE YELLOW (YELLOW); KETONES URINE NEGATIVE (NEGATIVE); LEUKOCYTE ESTERASE URINE NEGATIVE (NEGATIVE); NITRITE URINE NEGATIVE (NEGATIVE); OCCULT BLOOD URINE NEGATIVE (NEGATIVE); PROTEIN URINE NEGATIVE (NEGATIVE); SPECIFIC GRAVITY URINE 1.007 (1.005-1.030); UROBILINOGEN URINE 0.2 E.U./dL (0.2-1.0)
[2020-11-16 23:36] LABS: *AMPHETAMINES SCREEN URINE NEGATIVE (NEGATIVE); *BARBITURATES SCREEN URINE NEGATIVE (NEGATIVE); *BENZODIAZEPINES SCREEN URINE NEGATIVE (NEGATIVE); *COCAINE SCREEN URINE NEGATIVE (NEGATIVE)
[2020-11-16 23:37] LABS: CANNABINOID URINE SCREEN NEGATIVE (NEGATIVE); METHADONE URINE SCREEN NEGATIVE (NEGATIVE); OPIATES URINE SCREEN NEGATIVE (NEGATIVE); PHENCYCLIDINE URINE SCREEN NEGATIVE (NEGATIVE)
[2020-11-17 06:20] VITALS: BP 136/96
== END 2020-11-17 06:23 | disposition home or self-care (01) ==
LOC: ER 19:32
DX: R11.2 Nausea with vomiting, unspecified (principal); F10.229 Alcohol dependence with intoxication, unspecified; Y90.0 Blood alcohol level of less than 20 mg/100 ml; D64.9 Anemia, unspecified; E11.9 Type 2 diabetes mellitus without complications; I10 Essential (primary) hypertension; Z88.0 Allergy status to penicillin
CPT/HCPCS: 36415; 70450; 80053; 80305; 80307; 80320; 80329; 81003; 85025; 93005; 96361; 96374; 99285; J2405; J7030; G0480

== ENCOUNTER 2020-11-25 20:17 | Emergency (ER) | payer OTHER ==
[~2020-11-25] VITALS: Ht 175.3 cm; Wt 68.2 kg
[2020-11-25 20:29] VITALS: BP 117/93
== END 2020-11-25 20:35 | disposition left against medical advice (07) ==
LOC: ER 20:17
DX: Z53.21 Procedure and treatment not carried out due to patient leaving prior to being seen by health care provider (principal)

== ENCOUNTER 2021-01-22 19:52 | Emergency (ER) | payer MEDICAID, OTHER ==
[~2021-01-22] VITALS: Ht 175.3 cm; Wt 75.0 kg
[2021-01-22] MEDS ORDERED: LEVETIRACETAM 500MG PREMIX 100 ML IV ONE (20:30)
[2021-01-22 21:12] LABS: HEMATOCRIT. 34.5 % (42.0-52.0); HEMOGLOBIN. 11.4 g/dL (14.0-18.0); MEAN CORPUSCULAR HEMOGLOBIN 24.6 pg (28.0-32.0); MEAN CORPUSCULAR VOLUME 74.2 fL (80.0-94.0); MEAN PLATELET VOLUME 7.1 fl (7.4-10.4); PLATELET 264 x1000/uL (130-400); RED BLOOD CELL COUNT 4.65 mill/uL (4.7-6.1)
[2021-01-22 21:19] LABS: CHLORIDE 103 mEq/L (98-107)
[2021-01-22 21:37] LABS: PLATELET ESTIMATE NORMAL
[2021-01-22 21:38] LABS: ETHANOL BLOOD 415 mg/dL
[2021-01-22] MEDS ORDERED: SODIUM CHLORIDE 0.9% 1,000 ML IV ONE (21:45)
[2021-01-22] MEDS ORDERED: ACETAMINOPHEN 325MG TABLET PO ONE (21:45)
[2021-01-23 04:00] VITALS: BP 116/87
== END 2021-01-23 06:00 | disposition home or self-care (01) ==
LOC: ER 19:52
DX: F10.229 Alcohol dependence with intoxication, unspecified (principal); G40.909 Epilepsy, unspecified, not intractable, without status epilepticus; Y90.8 Blood alcohol level of 240 mg/100 ml or more; F14.10 Cocaine abuse, uncomplicated; D57.1 Sickle-cell disease without crisis; R00.0 Tachycardia, unspecified; Z87.820 Personal history of traumatic brain injury
CPT/HCPCS: 36415; 80053; 80320; 82962; 85025; 93005; 96361; 96365; 99285; J1953; J7030; G0480

== ENCOUNTER 2021-01-27 23:53 | Emergency (ER) | payer OTHER, MEDICAID ==
[~2021-01-27] VITALS: Ht 175.3 cm; Wt 73.0 kg
[2021-01-28] MEDS ORDERED: PANTOPRAZOLE SODIUM 40 MG/VIAL IV STA (00:54)
[2021-01-28] MEDS ORDERED: SODIUM CHLORIDE 0.9% 1,000 ML IV ONE (01:00)
[2021-01-28 01:36] LABS: BASOPHILS % 1.3 % (0.0-2.0); EOSINOPHILS % 1.6 % (0.0-5.0); HEMATOCRIT. 37.4 % (42.0-52.0); HEMOGLOBIN. 11.7 g/dL (14.0-18.0); LYMPHOCYTES % 44.2 % (20.0-50.0); MEAN CORPUSCULAR HEMOGLOBIN 23.7 pg (28.0-32.0); MEAN CORPUSCULAR VOLUME 75.5 fL (80.0-94.0); MEAN PLATELET VOLUME 7.6 fl (7.4-10.4); MONOCYTES % 14.5 % (2.0-8.0); NEUTROPHILS % 38.4 % (40.0-76.0); PLATELET 247 x1000/uL (130-400); RED BLOOD CELL COUNT 4.95 mill/uL (4.7-6.1); RED CELL DISTRIBUTION WIDTH 19.3 % (11.6-14.6)
[2021-01-28 01:37] LABS: CHLORIDE 100 mEq/L (98-107)
[2021-01-28 02:09] LABS: PROTHROMBIN TIME 11.1 sec (9.6-11.0)
[2021-01-28 03:01] LABS: CLARITY URINE CLEAR (CLEAR); COLOR URINE YELLOW (YELLOW); KETONES URINE NEGATIVE (NEGATIVE); LEUKOCYTE ESTERASE URINE NEGATIVE (NEGATIVE); NITRITE URINE NEGATIVE (NEGATIVE); OCCULT BLOOD URINE NEGATIVE (NEGATIVE); PH URINE 5.5 (4.5-8.0); PROTEIN URINE NEGATIVE (NEGATIVE); SPECIFIC GRAVITY URINE 1.003 (1.005-1.030); UROBILINOGEN URINE 0.2 E.U./dL (0.2-1.0)
[2021-01-28] MEDS ORDERED: FAMO-135 MT (03:26)
[2021-01-28 04:29] VITALS: BP 133/94
== END 2021-01-28 04:50 | disposition home or self-care (01) ==
LOC: ER 23:53
DX: K29.21 Alcoholic gastritis with bleeding (principal); Y90.8 Blood alcohol level of 240 mg/100 ml or more; K64.8 Other hemorrhoids; F17.290 Nicotine dependence, other tobacco product, uncomplicated; Z88.0 Allergy status to penicillin
CPT/HCPCS: 36415; 80053; 80320; 81003; 83690; 85025; 85610; 86850; 86900; 86901; 93005; 96361; 96374; 99284; C9113; J7030; G0480

== ENCOUNTER 2021-03-29 21:13 | Emergency (ER) | payer MEDICAID, OTHER ==
[~2021-03-29] VITALS: Ht 180.3 cm; Wt 73.0 kg
[~2021-03-29 21:13] MED LIST changes: +FAMO-135 MT
[2021-03-30] MEDS ORDERED: FAMOTIDINE 20MG/2ML VIAL IV STA (02:07)
[2021-03-30] MEDS ORDERED: SODIUM CHLORIDE 0.9% 1,000 ML IV ONE (02:15)
[2021-03-30 02:38] LABS: HEMATOCRIT. 35.5 % (42.0-52.0); HEMOGLOBIN. 11.3 g/dL (14.0-18.0); MEAN CORPUSCULAR HEMOGLOBIN 23.9 pg (28.0-32.0); MEAN CORPUSCULAR VOLUME 74.8 fL (80.0-94.0); MEAN PLATELET VOLUME 7.2 fl (7.4-10.4); PLATELET 466 x1000/uL (130-400); RED BLOOD CELL COUNT 4.74 mill/uL (4.7-6.1); RED CELL DISTRIBUTION WIDTH 16.5 % (11.6-14.6)
[2021-03-30 02:41] LABS: CHLORIDE 110 mEq/L (98-107)
[2021-03-30 02:54] LABS: ETHANOL BLOOD 308 mg/dL
[2021-03-30 03:36] LABS: NUCLEATED RED BLOOD CELLS 1 /100 WBC
[2021-03-30 03:37] LABS: PLATELET ESTIMATE INCREASED
[2021-03-30 05:59] VITALS: BP 143/86
[2021-03-30] MEDS ORDERED: IOHEXOL-300 100 ML BOTTLE ONE (05:59)
[2021-03-30] MEDS ORDERED: DOCU-138 MT (06:10)
[2021-03-30] MEDS ORDERED: FAMO-135 MT (06:10)
== END 2021-03-30 06:17 | disposition home or self-care (01) ==
LOC: ER 21:13
DX: R10.33 Periumbilical pain (principal); R07.89 Other chest pain; K56.41 Fecal impaction; F10.129 Alcohol abuse with intoxication, unspecified; Y90.8 Blood alcohol level of 240 mg/100 ml or more; I10 Essential (primary) hypertension; Z88.0 Allergy status to penicillin; Z79.899 Other long term (current) drug therapy
CPT/HCPCS: 36415; 71045; 74177; 80053; 80320; 83605; 83690; 84484; 85025; 93005; 96361; 96374; 99285; J3490; J7030; Q9967; G0480

== ENCOUNTER 2021-06-02 11:54 | Emergency (ER) | payer MEDICAID, OTHER ==
[~2021-06-02] VITALS: Ht 167.6 cm; Wt 86.0 kg
[~2021-06-02 11:54] MED LIST changes: +DOCU-138 MT
[2021-06-02 12:34] VITALS: BP 116/81
== END 2021-06-02 14:05 | disposition left against medical advice (07) ==
LOC: ER 11:54
DX: Z53.21 Procedure and treatment not carried out due to patient leaving prior to being seen by health care provider (principal)

== ENCOUNTER 2021-06-08 08:17 | Inpatient (IN) | payer MEDICAID, OTHER ==
[~2021-06-08] VITALS: Ht 170.2 cm; Wt 61.5 kg
[2021-06-08] MEDS ORDERED: ONDANSETRON HCL 4MG/2ML INJ IV ONE (09:00)
[2021-06-08] MEDS ORDERED: SODIUM CHLORIDE 0.9% 500 ML IV ONE (09:00)
[2021-06-08] MEDS ORDERED: MORPHINE SULFATE 4 MG/ML CPJ (NOT FOR IM USE) IV ONE (09:00)
[2021-06-08 09:27] LABS: EOSINOPHILS % 0.2 % (0.0-5.0); HEMATOCRIT. 34.4 % (42.0-52.0); HEMOGLOBIN. 11.2 g/dL (14.0-18.0); LYMPHOCYTES % 9.6 % (20.0-50.0); MEAN CORPUSCULAR HEMOGLOBIN 23.8 pg (28.0-32.0); MEAN CORPUSCULAR VOLUME 72.8 fL (80.0-94.0); MONOCYTES % 6.1 % (2.0-8.0); NEUTROPHILS % 83.1 % (40.0-76.0); RED BLOOD CELL COUNT 4.72 mill/uL (4.7-6.1); RED CELL DISTRIBUTION WIDTH 19.6 % (11.6-14.6)
[2021-06-08 09:33] LABS: CHLORIDE 108 mEq/L (98-107)
[2021-06-08 09:37] LABS: ETHANOL BLOOD 253 mg/dL
[2021-06-08] MEDS ORDERED: FLUORESCEIN SODIUM 1MG/STRIP RIGHTEYE ONE (09:45)
[2021-06-08] MEDS ORDERED: TETRACAINE 0.5% OPHTH DROPS 4ML RIGHTEYE ONE (09:45)
[2021-06-08 10:47] LABS: PLATELET 310 x1000/uL (130-400)
[2021-06-08] MEDS ORDERED: MORPHINE SULFATE 2 MG/ML CPJ (NOT FOR IM USE) IV ONE (13:00)
[2021-06-08 14:43] LABS: *AMPHETAMINES SCREEN URINE NEGATIVE (NEGATIVE)
[2021-06-08 14:44] LABS: *BARBITURATES SCREEN URINE NEGATIVE (NEGATIVE); *BENZODIAZEPINES SCREEN URINE NEGATIVE (NEGATIVE); *COCAINE SCREEN URINE NEGATIVE (NEGATIVE); CANNABINOID URINE SCREEN NEGATIVE (NEGATIVE); METHADONE URINE SCREEN NEGATIVE (NEGATIVE); OPIATES URINE SCREEN PRESUMTIVE POSITIVE (NEGATIVE); PHENCYCLIDINE URINE SCREEN NEGATIVE (NEGATIVE)
[2021-06-08] MEDS ORDERED: LORAZEPAM 2MG/ML CPJ IV PRN (16:45)
[2021-06-08] MEDS ORDERED: NALOXONE HCL 0.4MG/ML VIAL IV PRN (17:15)
[2021-06-08] MEDS: SODIUM CHLORIDE 0.9% 1,000 ML IV SCH (17:34)
[2021-06-08] MEDS: FOLIC ACID 1 MG, THIAMINE HCL 100 MG, MVI, ADULT NO.1 10 ML in DEXTROSE 5% WATER 1,000 ML IV SCH (20:13)
[2021-06-08] MEDS: MORPHINE SULFATE 2 MG/ML CPJ (NOT FOR IM USE) IV PRN (20:14)
[2021-06-08 21:53] LABS: FOLIC ACID (FOLATE) SERUM 17.9 ng/mL (>5.38)
[2021-06-08] MEDS: CHLORDIAZEPOXIDE 5 MG CAPSULE PO SCH (22:11)
[2021-06-08] MEDS: LORAZEPAM 2MG/ML CPJ IV PRN (23:22)
[2021-06-09 03:55] VITALS: BP 161/102
[2021-06-09 04:00] VITALS: BP 161/102
[2021-06-09] MEDS: MORPHINE SULFATE 2 MG/ML CPJ (NOT FOR IM USE) IV PRN ×2 (05:02→10:05)
[2021-06-09] MEDS: SODIUM CHLORIDE 0.9% 1,000 ML IV SCH ×2 (06:35→16:56)
[2021-06-09] MEDS: CHLORDIAZEPOXIDE 5 MG CAPSULE PO SCH (06:40)
[2021-06-09 08:00] VITALS: BP 145/90
[2021-06-09] MEDS: PANTOPRAZOLE SODIUM 40 MG/VIAL IV SCH (10:04)
[2021-06-09] MEDS: LORAZEPAM 2MG/ML CPJ IV PRN ×2 (11:38→17:42)
[2021-06-09 12:00] VITALS: BP 139/90
[2021-06-09] MEDS ORDERED: LORAZEPAM 2MG/ML CPJ IV SCH (13:00)
[2021-06-09] MEDS ORDERED: DIPHENHYDRAMINE 50MG/ML VIAL IV ONE (13:00)
[2021-06-09] MEDS ORDERED: HALOPERIDOL LACTATE 5MG/ML VIAL IM SCH (13:00)
[2021-06-09] MEDS: CHLORDIAZEPOXIDE 10MG CAPSULE PO SCH ×3 (13:34→22:00)
[2021-06-09] MEDS ORDERED: ZIPRASIDONE MESYLATE 20MG/VIAL IM NR (15:30)
[2021-06-09 16:00] VITALS: BP 135/94
[2021-06-09] MEDS: FOLIC ACID 1 MG, THIAMINE HCL 100 MG, MVI, ADULT NO.1 10 ML in DEXTROSE 5% WATER 1,000 ML IV SCH (18:00)
[2021-06-09 20:00] VITALS: BP 137/94
[2021-06-10] VITALS: BP 141/101
[2021-06-10] MEDS: SODIUM CHLORIDE 0.9% 1,000 ML IV SCH ×3 (02:37→17:40)
[2021-06-10 04:00] VITALS: BP 139/96
[2021-06-10] MEDS: CHLORDIAZEPOXIDE 10MG CAPSULE PO SCH ×3 (06:09→21:28)
[2021-06-10 08:00] VITALS: BP 135/83
[2021-06-10] MEDS: PANTOPRAZOLE SODIUM 40 MG/VIAL IV SCH (10:12)
[2021-06-10 12:00] VITALS: BP 143/103
[2021-06-10] MEDS ORDERED: LIDOCAINE HCL 1% 20ML VIAL (Pyxis) INJ ONE (13:29)
[2021-06-10] MEDS ORDERED: IOHEXOL-300 100 ML BOTTLE ONE (15:02)
[2021-06-10 16:00] VITALS: BP 128/95
[2021-06-10] MEDS: FOLIC ACID 1 MG, THIAMINE HCL 100 MG, MVI, ADULT NO.1 10 ML in DEXTROSE 5% WATER 1,000 ML IV SCH (18:09)
[2021-06-10 20:00] VITALS: BP 151/98
[2021-06-11] VITALS: BP 133/99
[2021-06-11] MEDS: SODIUM CHLORIDE 0.9% 1,000 ML IV SCH ×4 (01:49→21:43)
[2021-06-11 04:00] VITALS: BP 143/93
[2021-06-11] MEDS: CHLORDIAZEPOXIDE 10MG CAPSULE PO SCH (05:23)
[2021-06-11 08:00] VITALS: BP 148/99
[2021-06-11] MEDS: PANTOPRAZOLE SODIUM 40 MG/VIAL IV SCH (08:53)
[2021-06-11] MEDS: MORPHINE SULFATE 2 MG/ML CPJ (NOT FOR IM USE) IV PRN ×2 (09:22→15:27)
[2021-06-11 11:58] VITALS: BP 140/95
[2021-06-11] MEDS: CHLORDIAZEPOXIDE 5 MG CAPSULE PO SCH ×2 (14:27→21:32)
[2021-06-11 15:48] VITALS: BP 145/98
[2021-06-11] MEDS: FOLIC ACID 1 MG, THIAMINE HCL 100 MG, MVI, ADULT NO.1 10 ML in DEXTROSE 5% WATER 1,000 ML IV SCH (18:08)
[2021-06-11 20:00] VITALS: BP 111/70
[2021-06-12] VITALS: BP 118/77
[2021-06-12] MEDS: MORPHINE SULFATE 2 MG/ML CPJ (NOT FOR IM USE) IV PRN ×2 (03:47→21:05)
[2021-06-12 04:00] VITALS: BP 103/48
[2021-06-12] MEDS: CHLORDIAZEPOXIDE 5 MG CAPSULE PO SCH ×3 (05:36→20:50)
[2021-06-12 08:00] VITALS: BP 134/93
[2021-06-12] MEDS: PANTOPRAZOLE SODIUM 40 MG/VIAL IV SCH (09:31)
[2021-06-12] MEDS: SODIUM CHLORIDE 0.9% 1,000 ML IV SCH ×2 (09:35→19:17)
[2021-06-12 12:00] VITALS: BP 143/99
[2021-06-12 16:00] VITALS: BP 165/110
[2021-06-12] MEDS: CLONIDINE 0.1MG TABLET PO PRN ×2 (16:19→20:51)
[2021-06-12 20:00] VITALS: BP 150/103
[2021-06-12] MEDS: FOLIC ACID 1 MG, THIAMINE HCL 100 MG, MVI, ADULT NO.1 10 ML in DEXTROSE 5% WATER 1,000 ML IV SCH (20:53)
[2021-06-13] VITALS: BP 174/108
[2021-06-13] MEDS: CLONIDINE 0.1MG TABLET PO PRN ×2 (00:51→06:39)
[2021-06-13] MEDS: SODIUM CHLORIDE 0.9% 1,000 ML IV SCH ×3 (03:13→18:14)
[2021-06-13 04:00] VITALS: BP 172/108
[2021-06-13] MEDS: MORPHINE SULFATE 2 MG/ML CPJ (NOT FOR IM USE) IV PRN (04:26)
[2021-06-13] MEDS: CHLORDIAZEPOXIDE 5 MG CAPSULE PO SCH ×3 (05:01→22:05)
[2021-06-13 08:00] VITALS: BP 159/92
[2021-06-13] MEDS: PANTOPRAZOLE SODIUM 40 MG/VIAL IV SCH (09:52)
[2021-06-13] MEDS: LORAZEPAM 2MG/ML CPJ IV PRN (09:52)
[2021-06-13] MEDS: AMLODIPINE 5MG TABLET PO SCH (09:53)
[2021-06-13 12:00] VITALS: BP 126/89
[2021-06-13 16:00] VITALS: BP 117/87
[2021-06-13] MEDS: FOLIC ACID 1 MG, THIAMINE HCL 100 MG, MVI, ADULT NO.1 10 ML in DEXTROSE 5% WATER 1,000 ML IV SCH (18:14)
[2021-06-13 20:00] VITALS: BP 136/76
[2021-06-13] MEDS ORDERED: LORAZEPAM 2MG/ML CPJ IV PRN (20:00)
[2021-06-13] MEDS: HYDROCODONE/ACETAMINOPHEN 5/325MG TABLET PO PRN (22:18)
[2021-06-14] VITALS: BP 140/97
[2021-06-14] MEDS: SODIUM CHLORIDE 0.9% 1,000 ML IV SCH ×3 (01:04→18:35)
[2021-06-14 04:00] VITALS: BP 152/106
[2021-06-14] MEDS: CLONIDINE 0.1MG TABLET PO PRN (04:28)
[2021-06-14] MEDS: CHLORDIAZEPOXIDE 5 MG CAPSULE PO SCH ×2 (05:01→13:25)
[2021-06-14 06:52] LABS: CHLORIDE 107 mEq/L (98-107)
[2021-06-14 06:56] LABS: BASOPHILS % 0.9 % (0.0-2.0); EOSINOPHILS % 6.4 % (0.0-5.0); HEMATOCRIT. 30.7 % (42.0-52.0); LYMPHOCYTES % 18.4 % (20.0-50.0); MEAN CORPUSCULAR HEMOGLOBIN 24.2 pg (28.0-32.0); MEAN PLATELET VOLUME 7.7 fl (7.4-10.4); MONOCYTES % 11.6 % (2.0-8.0); NEUTROPHILS % 62.7 % (40.0-76.0); PLATELET 273 x1000/uL (130-400); RED BLOOD CELL COUNT 4.15 mill/uL (4.7-6.1); RED CELL DISTRIBUTION WIDTH 19.7 % (11.6-14.6)
[2021-06-14 07:08] LABS: AMYLASE 140 IU/L (25-115)
[2021-06-14 08:00] VITALS: BP 125/96
[2021-06-14] MEDS: FAMOTIDINE 20MG TABLET PO SCH ×2 (08:57→20:16)
[2021-06-14] MEDS: AMLODIPINE 5MG TABLET PO SCH (08:57)
[2021-06-14] MEDS: HYDROCODONE/ACETAMINOPHEN 5/325MG TABLET PO PRN ×2 (09:08→19:50)
[2021-06-14] MEDS ORDERED: MAGNESIUM 2 G PREMIX 50 ML IV SCH (11:00)
[2021-06-14] MEDS ORDERED: POTASSIUM CHLORIDE INJ 40 MEQ in DEXT 5% WATER 250 ML IV SCH (11:00)
[2021-06-14 12:00] VITALS: BP 140/92
[2021-06-14 16:00] VITALS: BP 149/97
[2021-06-14] MEDS: FOLIC ACID 1 MG, THIAMINE HCL 100 MG, MVI, ADULT NO.1 10 ML in DEXTROSE 5% WATER 1,000 ML IV SCH (18:33)
[2021-06-14 20:00] VITALS: BP 138/93
[2021-06-15] VITALS: BP 140/90
[2021-06-15] MEDS: SODIUM CHLORIDE 0.9% 1,000 ML IV SCH ×3 (02:07→17:55)
[2021-06-15 04:00] VITALS: BP 119/83
[2021-06-15] MEDS: HYDROCODONE/ACETAMINOPHEN 5/325MG TABLET PO PRN ×2 (05:30→16:18)
[2021-06-15 06:22] LABS: CHLORIDE 109 mEq/L (98-107)
[2021-06-15 08:00] VITALS: BP 152/96
[2021-06-15] MEDS: FAMOTIDINE 20MG TABLET PO SCH ×2 (08:27→20:54)
[2021-06-15] MEDS: AMLODIPINE 5MG TABLET PO SCH (08:27)
[2021-06-15] MEDS ORDERED: POTASSIUM CHLORIDE 20MEQ TABLET SR PO NR (10:00)
[2021-06-15 12:00] VITALS: BP 158/98
[2021-06-15] MEDS ORDERED: MAGNESIUM 2 G PREMIX 50 ML IV NR (12:00)
[2021-06-15] MEDS ORDERED: POTASSIUM CHLORIDE INJ 40 MEQ in DEXT 5% WATER 250 ML IV NR (12:00)
[2021-06-15 16:04] VITALS: BP 149/88
[2021-06-15] MEDS: FOLIC ACID 1 MG, THIAMINE HCL 100 MG, MVI, ADULT NO.1 10 ML in DEXTROSE 5% WATER 1,000 ML IV SCH (17:53)
[2021-06-15 20:00] VITALS: BP 142/91
[2021-06-16] VITALS: BP 149/93
[2021-06-16] MEDS: HYDROCODONE/ACETAMINOPHEN 5/325MG TABLET PO PRN ×3 (02:49→20:44)
[2021-06-16 04:00] VITALS: BP 144/94
[2021-06-16 07:26] LABS: CHLORIDE 108 mEq/L (98-107)
[2021-06-16] MEDS: FAMOTIDINE 20MG TABLET PO SCH ×2 (08:16→20:44)
[2021-06-16] MEDS: AMLODIPINE 5MG TABLET PO SCH (08:17)
[2021-06-16] MEDS: SODIUM CHLORIDE 0.9% 1,000 ML IV SCH ×2 (10:00→17:59)
[2021-06-16 12:00] VITALS: BP 154/102
[2021-06-16] MEDS ORDERED: POTASSIUM CHLORIDE 20MEQ TABLET SR PO NR (15:00)
[2021-06-16 16:00] VITALS: BP 152/91
[2021-06-16 20:00] VITALS: BP 165/103
[2021-06-16] MEDS: CLONIDINE 0.1MG TABLET PO PRN (20:45)
[2021-06-17] VITALS: BP 153/98
[2021-06-17] MEDS: SODIUM CHLORIDE 0.9% 1,000 ML IV SCH ×2 (02:22→09:26)
[2021-06-17 04:00] VITALS: BP 157/96
[2021-06-17 08:00] VITALS: BP 144/102
[2021-06-17] MEDS: FOLIC ACID 1 MG, THIAMINE HCL 100 MG, MVI, ADULT NO.1 10 ML in DEXTROSE 5% WATER 1,000 ML IV SCH (08:33)
[2021-06-17] MEDS: AMLODIPINE 5MG TABLET PO SCH (09:26)
[2021-06-17] MEDS: FAMOTIDINE 20MG TABLET PO SCH (09:26)
[2021-06-17] MEDS ORDERED: POTASSIUM CHLORIDE 10MEQ TABLET SR PO SCH (11:00)
[2021-06-17] MEDS: HYDROCODONE/ACETAMINOPHEN 5/325MG TABLET PO PRN (11:08)
[2021-06-17 12:00] VITALS: BP 158/103
[2021-06-17] MEDS ORDERED: LIDOCAINE HCL 1% 20ML VIAL (Pyxis) INJ ONE (13:19)
[2021-06-17 13:26] LABS: CHLORIDE 106 mEq/L (98-107)
[2021-06-17 16:00] VITALS: BP 133/96
[2021-06-17 17:55] VITALS: BP 144/102
== END 2021-06-17 20:25 | DRG 282 ==
LOC: ER 08:29 → MICUSO 12:46 → ENRESERV 16:27 → 6EST 16:28 → MICUSO 20:18 → 7EST 06-09 01:37 → 6EST 06-16 22:06
PROVIDERS: ADMIT Internal Medicine; ATTEND Internal Medicine
PROC: 02HV33Z Insertion of Infusion Device into Superior Vena Cava, Percutaneous Approach (ICD-10-PCS; principal; 2021-06-10)
PROC: B518ZZA Fluoroscopy of Superior Vena Cava, Guidance (ICD-10-PCS; 2021-06-10)
PROC: B548ZZA Ultrasonography of Superior Vena Cava, Guidance (ICD-10-PCS; 2021-06-10)
PROC: 02HV33Z Insertion of Infusion Device into Superior Vena Cava, Percutaneous Approach (ICD-10-PCS; 2021-06-17)
PROC: B518ZZA Fluoroscopy of Superior Vena Cava, Guidance (ICD-10-PCS; 2021-06-17)
PROC: B548ZZA Ultrasonography of Superior Vena Cava, Guidance (ICD-10-PCS; 2021-06-17)
DX: K85.20 Alcohol induced acute pancreatitis without necrosis or infection (principal); G92 Toxic encephalopathy; K70.10 Alcoholic hepatitis without ascites; D57.1 Sickle-cell disease without crisis; K76.0 Fatty (change of) liver, not elsewhere classified; D50.9 Iron deficiency anemia, unspecified; F10.129 Alcohol abuse with intoxication, unspecified; F10.139 Alcohol abuse with withdrawal, unspecified; F17.210 Nicotine dependence, cigarettes, uncomplicated; S22.31XA Fracture of one rib, right side, initial encounter for closed fracture; S20.211A Contusion of right front wall of thorax, initial encounter; K86.2 Cyst of pancreas; H11.31 Conjunctival hemorrhage, right eye; K86.1 Other chronic pancreatitis; Y09 Assault by unspecified means; I10 Essential (primary) hypertension; Z20.822 Contact with and (suspected) exposure to COVID-19; Z59.0 Homelessness; I48.91 Unspecified atrial fibrillation; W18.39XA Other fall on same level, initial encounter; Y90.9 Presence of alcohol in blood, level not specified; Z82.49 Family history of ischemic heart disease and other diseases of the circulatory system; Z91.14 Patient's other noncompliance with medication regimen; Z88.0 Allergy status to penicillin; Z79.899 Other long term (current) drug therapy; Y93.89 Activity, other specified; Y92.89 Other specified places as the place of occurrence of the external cause; Y99.8 Other external cause status
CPT/HCPCS: 36415; 36573; 70486; 71045; 71250; 74177; 76700; 80048; 80053; 80076; 80305; 80320; 82150; 82270; 82607; 82728; 82746; 83540; 83550; 83735; 83880; 84132; 84484; 85025; 85044; 87426; 93005; 97116; 97162; 97166; 99285; C1725; C1769; C9113; J1200; J1630; J2060; J2270; J2405; J3411; J3475; J3480; J3486; J3490; J7030; J7040; J7060; J7070; Q9967; G0480

== ENCOUNTER 2021-06-21 18:52 | Emergency (ER) | payer OTHER ==
[~2021-06-21] VITALS: Ht 172.7 cm; Wt 67.0 kg
[2021-06-21] MEDS ORDERED: HYDROCODONE/ACETAMINOPHEN 5/325MG TABLET PO STA (22:19)
[2021-06-21] MEDS ORDERED: TETRACAINE 0.5% OPHTH DROPS 4ML RIGHTEYE ONE ×2 (22:30→23:45)
[2021-06-21 22:56] LABS: BASOPHILS % 1.4 % (0.0-2.0); HEMATOCRIT. 33.1 % (42.0-52.0); HEMOGLOBIN. 10.5 g/dL (14.0-18.0); LYMPHOCYTES % 26.1 % (20.0-50.0); MEAN CORPUSCULAR HEMOGLOBIN 23.9 pg (28.0-32.0); MEAN CORPUSCULAR VOLUME 75.2 fL (80.0-94.0); MEAN PLATELET VOLUME 7.3 fl (7.4-10.4); MONOCYTES % 12.5 % (2.0-8.0); PLATELET 591 x1000/uL (130-400)
[2021-06-21 23:02] LABS: CHLORIDE 108 mEq/L (98-107)
[2021-06-21 23:05] LABS: PROTHROMBIN TIME 10.5 sec (9.6-11.0)
[2021-06-21] MEDS ORDERED: TETRACAINE 0.5% OPHTH DROPS 4ML RIGHTEYE SCH (23:45)
[2021-06-22 01:50] LABS: CLARITY URINE CLEAR (CLEAR); COLOR URINE YELLOW (YELLOW); KETONES URINE NEGATIVE (NEGATIVE); LEUKOCYTE ESTERASE URINE NEGATIVE (NEGATIVE); NITRITE URINE NEGATIVE (NEGATIVE); OCCULT BLOOD URINE NEGATIVE (NEGATIVE); PH URINE 5.5 (4.5-8.0); PROTEIN URINE NEGATIVE (NEGATIVE); SPECIFIC GRAVITY URINE 1.022 (1.005-1.030); UROBILINOGEN URINE 0.2 E.U./dL (0.2-1.0)
[2021-06-22 03:35] VITALS: BP 134/81
== END 2021-06-22 03:46 | disposition home or self-care (01) ==
LOC: ER 18:52
DX: R10.9 Unspecified abdominal pain (principal); I48.91 Unspecified atrial fibrillation; D64.9 Anemia, unspecified; I10 Essential (primary) hypertension; Z79.899 Other long term (current) drug therapy; Z88.0 Allergy status to penicillin; Z98.890 Other specified postprocedural states
CPT/HCPCS: 36415; 74177; 80053; 81003; 85025; 99285

== ENCOUNTER 2021-06-29 06:41 | Emergency (ER) | payer OTHER ==
[~2021-06-29] VITALS: Ht 195.6 cm; Wt 90.0 kg
[2021-06-29 06:43] VITALS: BP 136/88
[2021-06-29] MEDS ORDERED: SODIUM CHLORIDE 0.9% 1,000 ML IV ONE (07:15)
== END 2021-06-29 07:30 | disposition left against medical advice (07) ==
LOC: ER 06:53
DX: F10.229 Alcohol dependence with intoxication, unspecified (principal); Y90.0 Blood alcohol level of less than 20 mg/100 ml; R56.9 Unspecified convulsions; F10.239 Alcohol dependence with withdrawal, unspecified
CPT/HCPCS: 93005; 99283; J7030

== ENCOUNTER 2021-07-01 10:20 | Emergency (ER) | payer OTHER ==
[~2021-07-01] VITALS: Ht 175.3 cm; Wt 65.0 kg
[2021-07-01] MEDS ORDERED: KETOROLAC 30MG/ML VIAL IM ONE (11:15)
[2021-07-01] MEDS ORDERED: IBUP-2029 MT (12:59)
[2021-07-01 13:12] VITALS: BP 142/65
== END 2021-07-01 13:13 | disposition home or self-care (01) ==
LOC: ER 10:20
DX: S22.31XA Fracture of one rib, right side, initial encounter for closed fracture (principal); Z88.0 Allergy status to penicillin; Z86.59 Personal history of other mental and behavioral disorders; Z98.890 Other specified postprocedural states; Y04.0XXA Assault by unarmed brawl or fight, initial encounter; Y93.89 Activity, other specified; Y92.89 Other specified places as the place of occurrence of the external cause; Y99.8 Other external cause status
CPT/HCPCS: 71111; 73552; 73560; 96372; 99284; J1885

== ENCOUNTER 2021-07-02 08:35 | Emergency (ER) | payer OTHER ==
[~2021-07-02] VITALS: Ht 175.3 cm; Wt 63.0 kg
[~2021-07-02 08:35] MED LIST changes: +IBUP-2029 MT
[2021-07-02 08:43] VITALS: BP 146/100
== END 2021-07-02 09:27 | disposition home or self-care (01) ==
LOC: ER 08:35
DX: S22.31XA Fracture of one rib, right side, initial encounter for closed fracture (principal); I10 Essential (primary) hypertension; G40.909 Epilepsy, unspecified, not intractable, without status epilepticus; D57.1 Sickle-cell disease without crisis; Z88.0 Allergy status to penicillin; X58.XXXA Exposure to other specified factors, initial encounter; Y93.89 Activity, other specified; Y92.89 Other specified places as the place of occurrence of the external cause
CPT/HCPCS: 99281

== ENCOUNTER 2021-07-05 10:32 | Emergency (ER) | payer OTHER | END 2021-07-05 11:47 | disposition left against medical advice (07) | LOC: ER 10:32 | DX: Z53.21 Procedure and treatment not carried out due to patient leaving prior to being seen by health care provider (principal) ==

== ENCOUNTER 2021-07-07 11:27 | Emergency (ER) | payer OTHER ==
[~2021-07-07] VITALS: Ht 175.3 cm; Wt 64.0 kg
[2021-07-07] MEDS ORDERED: MORPHINE SULFATE 4 MG/ML CPJ (NOT FOR IM USE) IV STA (12:00)
[2021-07-07] MEDS ORDERED: SODIUM CHLORIDE 0.9% 1,000 ML IV ONE (12:00)
[2021-07-07] MEDS ORDERED: ONDANSETRON HCL 4MG/2ML INJ IV STA (12:00)
[2021-07-07] MEDS ORDERED: GENTAMICIN SULF 40MG/ML 2ML VIAL IM ONE (12:15)
[2021-07-07] MEDS ORDERED: LIDOCAINE HCL 1% 20ML VIAL (Pyxis) INJ INFIL ONE (12:15)
[2021-07-07] MEDS ORDERED: MORPHINE SULFATE 2 MG/ML CPJ (NOT FOR IM USE) IV STA (12:26)
[2021-07-07 12:33] LABS: BASOPHILS % 1.2 % (0.0-2.0); EOSINOPHILS % 2.1 % (0.0-5.0); HEMATOCRIT. 33.4 % (42.0-52.0); HEMOGLOBIN. 10.7 g/dL (14.0-18.0); LYMPHOCYTES % 33.9 % (20.0-50.0); MEAN CORPUSCULAR HEMOGLOBIN 23.3 pg (28.0-32.0); MEAN CORPUSCULAR VOLUME 72.6 fL (80.0-94.0); MEAN PLATELET VOLUME 6.9 fl (7.4-10.4); MONOCYTES % 9.1 % (2.0-8.0); NEUTROPHILS % 53.7 % (40.0-76.0); PLATELET 336 x1000/uL (130-400); RED BLOOD CELL COUNT 4.59 mill/uL (4.7-6.1); RED CELL DISTRIBUTION WIDTH 18.8 % (11.6-14.6)
[2021-07-07 12:38] LABS: CHLORIDE 105 mEq/L (98-107)
[2021-07-07 12:43] LABS: PARTIAL THROMBOPLASTIN TIME 23.8 sec (23.4-31.0); PROTHROMBIN TIME 10.5 sec (9.6-11.0)
[2021-07-07] MEDS ORDERED: GENTAMICIN SULF 40MG/ML 2ML VIAL IM SCH (12:45)
[2021-07-07 13:31] LABS: CLARITY URINE CLEAR (CLEAR); COLOR URINE YELLOW (YELLOW); KETONES URINE NEGATIVE (NEGATIVE); LEUKOCYTE ESTERASE URINE NEGATIVE (NEGATIVE); NITRITE URINE NEGATIVE (NEGATIVE); OCCULT BLOOD URINE NEGATIVE (NEGATIVE); PH URINE 5.5 (4.5-8.0); PROTEIN URINE NEGATIVE (NEGATIVE); SPECIFIC GRAVITY URINE 1.004 (1.005-1.030); UROBILINOGEN URINE 0.2 E.U./dL (0.2-1.0)
[2021-07-07 14:19] LABS: *AMPHETAMINES SCREEN URINE NEGATIVE (NEGATIVE); *BARBITURATES SCREEN URINE NEGATIVE (NEGATIVE); *BENZODIAZEPINES SCREEN URINE PRESUMTIVE POSITIVE (NEGATIVE); *COCAINE SCREEN URINE NEGATIVE (NEGATIVE); METHADONE URINE SCREEN NEGATIVE (NEGATIVE); OPIATES URINE SCREEN NEGATIVE (NEGATIVE)
[2021-07-07 14:20] LABS: CANNABINOID URINE SCREEN NEGATIVE (NEGATIVE); PHENCYCLIDINE URINE SCREEN NEGATIVE (NEGATIVE)
[2021-07-07] MEDS ORDERED: IBUP-2028 MT (16:27)
[2021-07-07] MEDS ORDERED: HYDR-4001 MT (16:27)
[2021-07-07] MEDS ORDERED: DOXY100C5 MT (16:27)
[2021-07-07 17:29] VITALS: BP 147/90
== END 2021-07-07 17:33 | disposition home or self-care (01) ==
LOC: ER 11:27
DX: R07.89 Other chest pain (principal); R07.81 Pleurodynia; M25.561 Pain in right knee; R31.0 Gross hematuria; R30.0 Dysuria; S27.899A Unspecified injury of other specified intrathoracic organs, initial encounter; S22.41XA Multiple fractures of ribs, right side, initial encounter for closed fracture; Y04.2XXA Assault by strike against or bumped into by another person, initial encounter; Y93.89 Activity, other specified; Y92.89 Other specified places as the place of occurrence of the external cause; I25.10 Atherosclerotic heart disease of native coronary artery without angina pectoris; D57.1 Sickle-cell disease without crisis; I10 Essential (primary) hypertension; K76.0 Fatty (change of) liver, not elsewhere classified
CPT/HCPCS: 36415; 71045; 71250; 73560; 80053; 80305; 80320; 81003; 85025; 85610; 85730; 86850; 86900; 86901; 93005; 96361; 96372; 96374; 96375; 99285; J1580; J2270; J2405; J7030; Z7610; G0480

== ENCOUNTER 2021-07-14 17:04 | Emergency (ER) | payer OTHER ==
[~2021-07-14] VITALS: Ht 175.3 cm; Wt 89.0 kg
[~2021-07-14 17:04] MED LIST changes: +DOXY100C5 MT; +HYDR-4001 MT; +IBUP-2028 MT
[2021-07-14 17:13] VITALS: BP 126/88
== END 2021-07-14 21:08 | disposition left against medical advice (07) ==
LOC: ER 17:16
DX: Z53.21 Procedure and treatment not carried out due to patient leaving prior to being seen by health care provider (principal)

== ENCOUNTER 2021-07-19 09:21 | Emergency (ER) | payer OTHER ==
[~2021-07-19] VITALS: Ht 175.3 cm; Wt 63.0 kg
[2021-07-19 09:29] VITALS: BP 148/100
[2021-07-19] MEDS ORDERED: IBUP-2029 MT (12:24)
== END 2021-07-19 13:12 | disposition home or self-care (01) ==
LOC: ER 09:21
DX: S22.31XA Fracture of one rib, right side, initial encounter for closed fracture (principal); R20.0 Anesthesia of skin; I11.9 Hypertensive heart disease without heart failure; D57.1 Sickle-cell disease without crisis; F10.20 Alcohol dependence, uncomplicated; F17.200 Nicotine dependence, unspecified, uncomplicated; Z79.899 Other long term (current) drug therapy; Z88.0 Allergy status to penicillin; X58.XXXA Exposure to other specified factors, initial encounter; Y93.89 Activity, other specified; Y92.89 Other specified places as the place of occurrence of the external cause; Y99.8 Other external cause status; Y90.9 Presence of alcohol in blood, level not specified
CPT/HCPCS: 99282

== ENCOUNTER 2021-07-26 12:39 | Emergency (ER) | payer OTHER ==
[~2021-07-26] VITALS: Ht 180.3 cm; Wt 82.0 kg
[2021-07-26 12:46] VITALS: BP 108/86
[2021-07-26] MEDS ORDERED: TOPUD MT (23:27)
[2021-07-26] MEDS ORDERED: IBUP-2437 MT (23:27)
== END 2021-07-26 14:36 | disposition left against medical advice (07) ==
LOC: ER 12:54
DX: Z53.21 Procedure and treatment not carried out due to patient leaving prior to being seen by health care provider (principal)

== ENCOUNTER 2021-07-26 19:25 | Emergency (ER) | payer OTHER ==
[~2021-07-26] VITALS: Ht 177.8 cm; Wt 90.0 kg
[2021-07-26] MEDS ORDERED: IBUP-2437 MT (23:27)
[2021-07-26] MEDS ORDERED: TOPUD MT (23:27)
[2021-07-26 23:55] VITALS: BP 126/85
== END 2021-07-26 23:59 | disposition home or self-care (01) ==
LOC: ER 19:25
DX: S22.31XA Fracture of one rib, right side, initial encounter for closed fracture (principal); I10 Essential (primary) hypertension; D57.1 Sickle-cell disease without crisis; X58.XXXA Exposure to other specified factors, initial encounter; Y93.89 Activity, other specified; Y92.89 Other specified places as the place of occurrence of the external cause; Z79.899 Other long term (current) drug therapy; Z88.0 Allergy status to penicillin
CPT/HCPCS: 71045; 93005; 99283

== ENCOUNTER 2021-08-04 16:30 | Emergency (ER) | payer OTHER ==
[~2021-08-04] VITALS: Ht 170.2 cm; Wt 63.0 kg
[~2021-08-04 16:30] MED LIST changes: +IBUP-2437 MT; +TOPUD MT
[2021-08-04 16:56] VITALS: BP 128/91
== END 2021-08-04 20:10 | disposition left against medical advice (07) ==
LOC: ER 16:30
DX: R07.2 Precordial pain (principal); I10 Essential (primary) hypertension; D57.1 Sickle-cell disease without crisis
CPT/HCPCS: 93005; 99283

== ENCOUNTER 2021-08-12 18:53 | Emergency (ER) | payer OTHER ==
[~2021-08-12] VITALS: Ht 185.4 cm; Wt 102.0 kg
[2021-08-12] MEDS ORDERED: VISCOUS LIDOCAINE 2% 15 ML UDC PO STA (23:02)
[2021-08-12] MEDS ORDERED: ONDANSETRON HCL 4MG/2ML INJ IV STA (23:02)
[2021-08-12] MEDS ORDERED: FAMOTIDINE 20MG/2ML VIAL IV STA (23:02)
[2021-08-12] MEDS ORDERED: MAGNESIUM/ALUMINUM HYDROXIDE/SIMETHICONE 30ML UDC PO STA (23:02)
[2021-08-12] MEDS ORDERED: SODIUM CHLORIDE 0.9% 1,000 ML IV ONE (23:15)
[2021-08-12 23:44] LABS: CLARITY URINE CLEAR (CLEAR); COLOR URINE YELLOW (YELLOW); KETONES URINE NEGATIVE (NEGATIVE); LEUKOCYTE ESTERASE URINE NEGATIVE (NEGATIVE); NITRITE URINE NEGATIVE (NEGATIVE); OCCULT BLOOD URINE NEGATIVE (NEGATIVE); PH URINE 5.5 (4.5-8.0); PROTEIN URINE 1+ (NEGATIVE); SPECIFIC GRAVITY URINE 1.009 (1.005-1.030); UROBILINOGEN URINE 0.2 E.U./dL (0.2-1.0)
[2021-08-13 00:06] LABS: *AMPHETAMINES SCREEN URINE NEGATIVE (NEGATIVE); *BARBITURATES SCREEN URINE NEGATIVE (NEGATIVE); CANNABINOID URINE SCREEN NEGATIVE (NEGATIVE); METHADONE URINE SCREEN NEGATIVE (NEGATIVE); OPIATES URINE SCREEN NEGATIVE (NEGATIVE); PHENCYCLIDINE URINE SCREEN NEGATIVE (NEGATIVE)
[2021-08-13 00:08] LABS: *BENZODIAZEPINES SCREEN URINE NEGATIVE (NEGATIVE); *COCAINE SCREEN URINE NEGATIVE (NEGATIVE)
[2021-08-13 00:33] LABS: HEMATOCRIT. 33.7 % (42.0-52.0); HEMOGLOBIN. 10.7 g/dL (14.0-18.0); MEAN CORPUSCULAR HEMOGLOBIN 23.8 pg (28.0-32.0); MEAN CORPUSCULAR VOLUME 74.4 fL (80.0-94.0); MEAN PLATELET VOLUME 7.2 fl (7.4-10.4); PLATELET 331 x1000/uL (130-400); RED BLOOD CELL COUNT 4.52 mill/uL (4.7-6.1); RED CELL DISTRIBUTION WIDTH 18.8 % (11.6-14.6)
[2021-08-13 00:39] LABS: CHLORIDE 109 mEq/L (98-107)
[2021-08-13 00:44] LABS: ETHANOL BLOOD 276 mg/dL
[2021-08-13] MEDS ORDERED: FAMO-135 MT (01:59)
[2021-08-13] MEDS ORDERED: MAG355OR21 MT (01:59)
[2021-08-13] MEDS ORDERED: ONDA4TAB5 MT (01:59)
[2021-08-13 02:08] LABS: PLATELET ESTIMATE NORMAL
[2021-08-13 05:39] VITALS: BP 151/110
== END 2021-08-13 05:40 | disposition home or self-care (01) ==
LOC: ER 18:53
DX: T51.0X1A Toxic effect of ethanol, accidental (unintentional), initial encounter (principal); R07.89 Other chest pain; F10.129 Alcohol abuse with intoxication, unspecified; K29.00 Acute gastritis without bleeding; Y90.8 Blood alcohol level of 240 mg/100 ml or more; I10 Essential (primary) hypertension; F17.210 Nicotine dependence, cigarettes, uncomplicated; D57.1 Sickle-cell disease without crisis; F12.90 Cannabis use, unspecified, uncomplicated; Y92.89 Other specified places as the place of occurrence of the external cause; Z71.41 Alcohol abuse counseling and surveillance of alcoholic
CPT/HCPCS: 36415; 71045; 80053; 80305; 80320; 81003; 83605; 83690; 83880; 84484; 85025; 85044; 87040; 87077; 93005; 96361; 96374; 96375; 99285; J2405; J3490; J7030; G0480

== ENCOUNTER 2021-09-23 14:57 | Emergency (ER) | payer OTHER ==
[~2021-09-23] VITALS: Ht 175.3 cm; Wt 64.0 kg
[~2021-09-23 14:57] MED LIST changes: +MAG355OR21 MT; +ONDA4TAB5 MT
[2021-09-23 16:18] VITALS: BP 128/91
[2021-09-23 18:02] LABS: BASOPHILS % 1.2 % (0.0-2.0); EOSINOPHILS % 8.8 % (0.0-5.0); HEMOGLOBIN. 10.6 g/dL (14.0-18.0); MEAN CORPUSCULAR VOLUME 73.4 fL (80.0-94.0); MEAN PLATELET VOLUME 7.5 fl (7.4-10.4); MONOCYTES % 9.9 % (2.0-8.0); NEUTROPHILS % 55.1 % (40.0-76.0); PLATELET 398 x1000/uL (130-400); RED BLOOD CELL COUNT 4.63 mill/uL (4.7-6.1); RED CELL DISTRIBUTION WIDTH 17.7 % (11.6-14.6)
[2021-09-23 18:09] LABS: CHLORIDE 107 mEq/L (98-107)
[2021-09-23 18:13] LABS: ETHANOL BLOOD 272 mg/dL
[2021-09-24] MEDS ORDERED: TC1U15 TP (17:34)
[2021-09-24] MEDS ORDERED: CETI10CA11 PO (17:34)
== END 2021-09-23 18:58 | disposition left against medical advice (07) ==
LOC: ER 14:57
DX: R07.9 Chest pain, unspecified (principal); Z53.21 Procedure and treatment not carried out due to patient leaving prior to being seen by health care provider
CPT/HCPCS: 36415; 71045; 80053; 80320; 85025; 93005; G0480

== ENCOUNTER 2021-09-24 16:15 | Emergency (ER) | payer OTHER ==
[~2021-09-24] VITALS: Ht 175.3 cm; Wt 64.0 kg
[2021-09-24] MEDS ORDERED: TC1U15 TP (17:34)
[2021-09-24] MEDS ORDERED: CETI10CA11 PO (17:34)
[2021-09-24 18:53] VITALS: BP 173/112
== END 2021-09-24 18:54 | disposition home or self-care (01) ==
LOC: ER 16:15
DX: L25.9 Unspecified contact dermatitis, unspecified cause (principal)
CPT/HCPCS: 99283

== ENCOUNTER 2021-09-27 20:46 | Emergency (ER) | payer OTHER ==
[~2021-09-27] VITALS: Ht 177.8 cm; Wt 75.0 kg
[~2021-09-27 20:46] MED LIST changes: +CETI10CA11 PO; +TC1U15 TP
[2021-09-27 21:50] VITALS: BP 143/97
[2021-09-27 22:28] LABS: CLARITY URINE CLEAR (CLEAR); COLOR URINE YELLOW (YELLOW); KETONES URINE NEGATIVE (NEGATIVE); LEUKOCYTE ESTERASE URINE NEGATIVE (NEGATIVE); NITRITE URINE NEGATIVE (NEGATIVE); OCCULT BLOOD URINE NEGATIVE (NEGATIVE); PH URINE 5.5 (4.5-8.0); PROTEIN URINE NEGATIVE (NEGATIVE); SPECIFIC GRAVITY URINE 1.005 (1.005-1.030); UROBILINOGEN URINE 0.2 E.U./dL (0.2-1.0)
[2021-09-27 22:42] LABS: *AMPHETAMINES SCREEN URINE NEGATIVE (NEGATIVE); *BARBITURATES SCREEN URINE NEGATIVE (NEGATIVE)
[2021-09-27 22:43] LABS: *BENZODIAZEPINES SCREEN URINE NEGATIVE (NEGATIVE); *COCAINE SCREEN URINE PRESUMTIVE POSITIVE (NEGATIVE); METHADONE URINE SCREEN NEGATIVE (NEGATIVE); OPIATES URINE SCREEN NEGATIVE (NEGATIVE); PHENCYCLIDINE URINE SCREEN NEGATIVE (NEGATIVE)
[2021-09-27 22:44] LABS: CANNABINOID URINE SCREEN NEGATIVE (NEGATIVE)
== END 2021-09-27 22:10 | disposition home or self-care (01) ==
LOC: ER 20:46
DX: G40.909 Epilepsy, unspecified, not intractable, without status epilepticus (principal); I10 Essential (primary) hypertension; F14.90 Cocaine use, unspecified, uncomplicated; F10.20 Alcohol dependence, uncomplicated; F12.90 Cannabis use, unspecified, uncomplicated; Y90.9 Presence of alcohol in blood, level not specified; D57.1 Sickle-cell disease without crisis; Z88.0 Allergy status to penicillin; Z79.899 Other long term (current) drug therapy
CPT/HCPCS: 80305; 81003; 99283

== ENCOUNTER 2021-10-03 12:00 | Emergency (ER) | payer OTHER ==
[~2021-10-03] VITALS: Ht 175.3 cm; Wt 71.0 kg
[2021-10-03] MEDS ORDERED: IBUPROFEN 400MG TABLET PO ONE (13:15)
[2021-10-03 13:23] LABS: BASOPHILS % 0.9 % (0.0-2.0); EOSINOPHILS % 5.9 % (0.0-5.0); HEMATOCRIT. 31.8 % (42.0-52.0); HEMOGLOBIN. 9.8 g/dL (14.0-18.0); MEAN CORPUSCULAR HEMOGLOBIN 22.4 pg (28.0-32.0); MEAN CORPUSCULAR VOLUME 72.9 fL (80.0-94.0); MEAN PLATELET VOLUME 6.9 fl (7.4-10.4); NEUTROPHILS % 55.2 % (40.0-76.0); PLATELET 379 x1000/uL (130-400); RED BLOOD CELL COUNT 4.36 mill/uL (4.7-6.1); RED CELL DISTRIBUTION WIDTH 17.9 % (11.6-14.6)
[2021-10-03 13:28] LABS: CHLORIDE 106 mEq/L (98-107)
[2021-10-03] MEDS ORDERED: HYDR453.4 TP (14:23)
[2021-10-03] MEDS ORDERED: IBUP-2028 MT (14:23)
[2021-10-03 14:44] VITALS: BP 137/91
== END 2021-10-03 14:45 | disposition home or self-care (01) ==
LOC: ER 12:31
DX: U07.1 COVID-19 (principal); L30.9 Dermatitis, unspecified; D50.9 Iron deficiency anemia, unspecified; I10 Essential (primary) hypertension; F17.200 Nicotine dependence, unspecified, uncomplicated; F12.10 Cannabis abuse, uncomplicated; Z88.0 Allergy status to penicillin; Z79.899 Other long term (current) drug therapy; Z98.890 Other specified postprocedural states; Z86.59 Personal history of other mental and behavioral disorders
CPT/HCPCS: 36415; 71045; 80053; 83880; 84484; 85025; 93005; 99285; C9803; U0003; U0005

== ENCOUNTER 2021-10-07 10:44 | Emergency (ER) | payer OTHER ==
[~2021-10-07] VITALS: Ht 177.8 cm; Wt 73.0 kg
[~2021-10-07 10:44] MED LIST changes: +HYDR453.4 TP
[2021-10-07 13:10] LABS: CHLORIDE 108 mEq/L (98-107)
[2021-10-07 16:08] VITALS: BP 108/82
[2021-10-07 16:21] LABS: HEMATOCRIT. 31.7 % (42.0-52.0); HEMOGLOBIN. 9.9 g/dL (14.0-18.0); MEAN CORPUSCULAR HEMOGLOBIN 22.8 pg (28.0-32.0); MEAN CORPUSCULAR VOLUME 72.8 fL (80.0-94.0); PLATELET 389 x1000/uL (130-400); RED BLOOD CELL COUNT 4.35 mill/uL (4.7-6.1); RED CELL DISTRIBUTION WIDTH 17.4 % (11.6-14.6)
[2021-10-07 21:18] LABS: PLATELET ESTIMATE NORMAL
== END 2021-10-07 16:12 | disposition home or self-care (01) ==
LOC: ER 10:44
DX: R07.89 Other chest pain (principal); U07.1 COVID-19; F12.10 Cannabis abuse, uncomplicated; I10 Essential (primary) hypertension; Z88.0 Allergy status to penicillin; Z79.899 Other long term (current) drug therapy; Z86.59 Personal history of other mental and behavioral disorders; Z98.890 Other specified postprocedural states
CPT/HCPCS: 36415; 71045; 80053; 83880; 84484; 85025; 93005; 99285

== ENCOUNTER 2021-10-14 10:17 | Emergency (ER) | payer OTHER ==
[~2021-10-14] VITALS: Ht 170.2 cm; Wt 70.0 kg
[2021-10-14] MEDS ORDERED: DEXAMETHASONE 10 MG/ML VIAL IM NR (11:37)
[2021-10-14] MEDS ORDERED: DIPHENHYDRAMINE 12.5MG/5ML UDC PO NR (11:37)
[2021-10-14] MEDS ORDERED: DIPHENHYDRAMINE HCL/ZINC ACET 28 GM CREAM TOP NR (12:00)
[2021-10-14] MEDS ORDERED: MED4 MT (14:46)
[2021-10-14] MEDS ORDERED: TC025C15 TP (14:46)
[2021-10-14] MEDS ORDERED: CEPH500C2 MT (14:46)
[2021-10-14] MEDS ORDERED: HYDR-3782 MT (14:46)
[2021-10-14 15:00] VITALS: BP 127/86
== END 2021-10-14 15:01 | disposition home or self-care (01) ==
LOC: ER 10:17
DX: L30.9 Dermatitis, unspecified (principal)
CPT/HCPCS: 96372; 99283; J1100; Q0163

== ENCOUNTER 2021-10-21 12:27 | Emergency (ER) | payer OTHER ==
[~2021-10-21] VITALS: Ht 172.7 cm; Wt 80.0 kg
[~2021-10-21 12:27] MED LIST changes: +CEPH500C2 MT; +HYDR-3782 MT; +MED4 MT; +TC025C15 TP
[2021-10-21 12:29] VITALS: BP 150/104
[2021-10-21] MEDS ORDERED: ELIMC TP (13:46)
== END 2021-10-21 15:04 | disposition home or self-care (01) ==
LOC: ER 12:27
DX: B85.1 Pediculosis due to Pediculus humanus corporis (principal); F12.10 Cannabis abuse, uncomplicated; I10 Essential (primary) hypertension; Z79.899 Other long term (current) drug therapy; Z88.0 Allergy status to penicillin; Z98.890 Other specified postprocedural states; Z86.59 Personal history of other mental and behavioral disorders
CPT/HCPCS: 99282

== ENCOUNTER 2022-01-20 17:48 | Emergency (ER) | payer OTHER ==
[~2022-01-20] VITALS: Ht 160 cm; Wt 60.0 kg
[~2022-01-20 17:48] MED LIST changes: +ELIMC TP
[2022-01-20] MEDS ORDERED: CEFTRIAXONE SODIUM 500 MG/VIAL IM ONE (21:00)
[2022-01-20] MEDS ORDERED: DOXYCYCLINE HYCLATE 100MG CAPSULE PO ONE (21:00)
[2022-01-20] MEDS ORDERED: DOXY100C5 MT (22:47)
[2022-01-20] MEDS ORDERED: CEFTRIAXONE SODIUM 500 MG/VIAL IM NR (23:00)
[2022-01-20] MEDS ORDERED: DOXYCYCLINE HYCLATE 100MG CAPSULE PO NR (23:00)
[2022-01-20 23:22] LABS: CLARITY URINE CLEAR (CLEAR); COLOR URINE YELLOW (YELLOW); KETONES URINE NEGATIVE (NEGATIVE); LEUKOCYTE ESTERASE URINE NEGATIVE (NEGATIVE); NITRITE URINE NEGATIVE (NEGATIVE); OCCULT BLOOD URINE NEGATIVE (NEGATIVE); PROTEIN URINE NEGATIVE (NEGATIVE); SPECIFIC GRAVITY URINE 1.007 (1.005-1.030); UROBILINOGEN URINE 0.2 E.U./dL (0.2-1.0)
[2022-01-20 23:58] VITALS: BP 145/90
[2022-01-24 04:10] LABS: NEISSERIA GONORRHOEAE NAA Negative (Negative)
== END 2022-01-21 | disposition home or self-care (01) ==
LOC: ER 17:53
DX: N39.0 Urinary tract infection, site not specified (principal); R31.0 Gross hematuria; Z20.2 Contact with and (suspected) exposure to infections with a predominantly sexual mode of transmission; I10 Essential (primary) hypertension; Z88.0 Allergy status to penicillin
CPT/HCPCS: 81003; 87491; 87591; 96372; 99283; J0696

== ENCOUNTER 2022-02-13 21:21 | Emergency (ER) | payer OTHER ==
[~2022-02-13] VITALS: Ht 175.3 cm; Wt 66.0 kg
[2022-02-14 00:55] LABS: HEMATOCRIT. 29.8 % (42.0-52.0); HEMOGLOBIN. 9.6 g/dL (14.0-18.0); MEAN CORPUSCULAR HEMOGLOBIN 23.1 pg (28.0-32.0); MEAN CORPUSCULAR VOLUME 71.7 fL (80.0-94.0); MEAN PLATELET VOLUME 6.8 fl (7.4-10.4); PLATELET 327 x1000/uL (130-400); RED BLOOD CELL COUNT 4.16 mill/uL (4.7-6.1); RED CELL DISTRIBUTION WIDTH 20.2 % (11.6-14.6)
[2022-02-14 01:02] LABS: CHLORIDE 106 mEq/L (98-107)
[2022-02-14 01:22] LABS: CLARITY URINE CLEAR (CLEAR); COLOR URINE YELLOW (YELLOW); KETONES URINE NEGATIVE (NEGATIVE); LEUKOCYTE ESTERASE URINE NEGATIVE (NEGATIVE); NITRITE URINE NEGATIVE (NEGATIVE); OCCULT BLOOD URINE NEGATIVE (NEGATIVE); PROTEIN URINE TRACE (NEGATIVE); UROBILINOGEN URINE 0.2 E.U./dL (0.2-1.0)
[2022-02-14 01:26] LABS: ETHANOL BLOOD 306 mg/dL
[2022-02-14 01:37] LABS: *AMPHETAMINES SCREEN URINE NEGATIVE (NEGATIVE); *BARBITURATES SCREEN URINE NEGATIVE (NEGATIVE); *BENZODIAZEPINES SCREEN URINE NEGATIVE (NEGATIVE); *COCAINE SCREEN URINE PRESUMTIVE POSITIVE (NEGATIVE); CANNABINOID URINE SCREEN NEGATIVE (NEGATIVE); METHADONE URINE SCREEN NEGATIVE (NEGATIVE); OPIATES URINE SCREEN NEGATIVE (NEGATIVE); PHENCYCLIDINE URINE SCREEN NEGATIVE (NEGATIVE)
[2022-02-14 01:44] VITALS: BP 121/74
[2022-02-14 03:59] LABS: PLATELET ESTIMATE NORMAL
== END 2022-02-14 01:59 | disposition home or self-care (01) ==
LOC: ER 21:21
DX: F10.229 Alcohol dependence with intoxication, unspecified (principal); F14.90 Cocaine use, unspecified, uncomplicated; I10 Essential (primary) hypertension; Y90.8 Blood alcohol level of 240 mg/100 ml or more; N41.9 Inflammatory disease of prostate, unspecified; E11.9 Type 2 diabetes mellitus without complications; G40.909 Epilepsy, unspecified, not intractable, without status epilepticus; D57.1 Sickle-cell disease without crisis
CPT/HCPCS: 36415; 80053; 80305; 80320; 81003; 85025; 86850; 86900; 99283; G0480

== ENCOUNTER 2022-02-23 15:52 | Emergency (ER) | payer OTHER ==
[~2022-02-23] VITALS: Ht 172.7 cm; Wt 75.0 kg
[2022-02-23 16:09] VITALS: BP 133/92
[2022-02-23 20:17] LABS: BASOPHILS % 1.3 % (0.0-2.0); EOSINOPHILS % 11.3 % (0.0-5.0); HEMATOCRIT. 28.7 % (42.0-52.0); LYMPHOCYTES % 33.4 % (20.0-50.0); MEAN CORPUSCULAR HEMOGLOBIN 22.6 pg (28.0-32.0); MEAN CORPUSCULAR VOLUME 72.3 fL (80.0-94.0); MEAN PLATELET VOLUME 7.2 fl (7.4-10.4); MONOCYTES % 11.8 % (2.0-8.0); NEUTROPHILS % 42.2 % (40.0-76.0); PLATELET 298 x1000/uL (130-400); RED BLOOD CELL COUNT 3.97 mill/uL (4.7-6.1)
[2022-02-23 20:42] LABS: CHLORIDE 106 mEq/L (98-107)
[2022-02-24] MEDS ORDERED: PERM60CR4 TP (05:31)
[2022-04-07] MEDS ORDERED: TOPUD PO (06:46)
== END 2022-02-23 22:38 | disposition left against medical advice (07) ==
LOC: ER 15:52
DX: K62.5 Hemorrhage of anus and rectum (principal); R31.0 Gross hematuria
CPT/HCPCS: 36415; 80053; 85025; 99283

== ENCOUNTER 2022-02-24 00:11 | Emergency (ER) | payer OTHER ==
[~2022-02-24] VITALS: Ht 175.3 cm; Wt 76.0 kg
[2022-02-24 01:04] LABS: HEMATOCRIT 29.6 % (42.0-52.0); HEMOGLOBIN 9.4 g/dL (14.0-18.0); MEAN CORPUSCULAR HEMOGLOBIN 22.4 pg (28.0-32.0); MEAN CORPUSCULAR VOLUME 70.8 fL (80.0-94.0); PLATELET 329 x1000/uL (130-400); RED BLOOD CELL COUNT 4.17 mill/uL (4.7-6.1); RED CELL DISTRIBUTION WIDTH 19.1 % (11.6-14.6)
[2022-02-24 01:12] LABS: CHLORIDE 105 mEq/L (98-107)
[2022-02-24] MEDS ORDERED: DIPHENHYDRAMINE 25MG CAPSULE PO ONE (02:30)
[2022-02-24 05:27] LABS: CLARITY URINE CLEAR (CLEAR); COLOR URINE YELLOW (YELLOW); KETONES URINE NEGATIVE (NEGATIVE); LEUKOCYTE ESTERASE URINE NEGATIVE (NEGATIVE); NITRITE URINE NEGATIVE (NEGATIVE); OCCULT BLOOD URINE NEGATIVE (NEGATIVE); PROTEIN URINE NEGATIVE (NEGATIVE); SPECIFIC GRAVITY URINE 1.007 (1.005-1.030); UROBILINOGEN URINE 0.2 E.U./dL (0.2-1.0)
[2022-02-24] MEDS ORDERED: PERM60CR4 TP (05:31)
[2022-02-24 05:48] VITALS: BP 167/114
== END 2022-02-24 05:52 | disposition home or self-care (01) ==
LOC: ER 00:44
DX: R31.9 Hematuria, unspecified (principal); F12.10 Cannabis abuse, uncomplicated; I10 Essential (primary) hypertension; E11.9 Type 2 diabetes mellitus without complications; Z98.890 Other specified postprocedural states; Z88.0 Allergy status to penicillin; Z79.899 Other long term (current) drug therapy; Z86.59 Personal history of other mental and behavioral disorders
CPT/HCPCS: 36415; 80053; 81003; 85027; 86850; 86900; 99283; Q0163

== ENCOUNTER 2022-02-25 03:53 | Emergency (ER) | payer OTHER ==
[~2022-02-25] VITALS: Ht 177.8 cm; Wt 82.0 kg
[~2022-02-25 03:53] MED LIST changes: +PERM60CR4 TP
[2022-02-25 03:57] VITALS: BP 154/110
== END 2022-02-25 04:22 | disposition home or self-care (01) ==
LOC: ER 03:53
DX: F10.229 Alcohol dependence with intoxication, unspecified (principal); Y90.8 Blood alcohol level of 240 mg/100 ml or more; I10 Essential (primary) hypertension; E11.9 Type 2 diabetes mellitus without complications; D57.1 Sickle-cell disease without crisis; G40.909 Epilepsy, unspecified, not intractable, without status epilepticus; F12.90 Cannabis use, unspecified, uncomplicated; Z88.0 Allergy status to penicillin; Z79.899 Other long term (current) drug therapy
CPT/HCPCS: 99283

== ENCOUNTER 2022-02-26 00:40 | Emergency (ER) | payer OTHER ==
[~2022-02-26] VITALS: Ht 175.3 cm; Wt 75.0 kg
[2022-02-26 01:33] VITALS: BP 175/99
== END 2022-02-26 01:45 | disposition home or self-care (01) ==
LOC: ER 00:40
DX: T14.8XXA Other injury of unspecified body region, initial encounter (principal); E11.9 Type 2 diabetes mellitus without complications; I10 Essential (primary) hypertension; G40.909 Epilepsy, unspecified, not intractable, without status epilepticus; D57.1 Sickle-cell disease without crisis; N40.0 Benign prostatic hyperplasia without lower urinary tract symptoms; F12.10 Cannabis abuse, uncomplicated; F10.21 Alcohol dependence, in remission; Z88.0 Allergy status to penicillin; W57.XXXA Bitten or stung by nonvenomous insect and other nonvenomous arthropods, initial encounter; Y93.89 Activity, other specified; Y92.018 Other place in single-family (private) house as the place of occurrence of the external cause
CPT/HCPCS: 99281

== ENCOUNTER 2022-02-28 16:12 | Emergency (ER) | payer OTHER ==
[~2022-02-28] VITALS: Ht 175.3 cm; Wt 67.0 kg
[2022-02-28 16:23] VITALS: BP 148/98
== END 2022-02-28 21:00 | disposition left against medical advice (07) ==
LOC: ER 16:12
DX: R07.89 Other chest pain (principal)
CPT/HCPCS: 93005; 99281

== ENCOUNTER 2022-03-10 23:15 | Emergency (ER) | payer OTHER ==
[~2022-03-10] VITALS: Ht 175.3 cm; Wt 65.9 kg
[2022-03-11] MEDS ORDERED: MORPHINE SULFATE 4 MG/ML CPJ (NOT FOR IM USE) IV STA (00:24)
[2022-03-11 01:33] LABS: CHLORIDE 104 mEq/L (98-107)
[2022-03-11 01:38] LABS: HEMATOCRIT. 25.3 % (42.0-52.0); HEMOGLOBIN. 7.9 g/dL (14.0-18.0); MEAN CORPUSCULAR HEMOGLOBIN 22.6 pg (28.0-32.0); MEAN CORPUSCULAR VOLUME 72.5 fL (80.0-94.0); MEAN PLATELET VOLUME 7.8 fl (7.4-10.4); PLATELET 325 x1000/uL (130-400); RED BLOOD CELL COUNT 3.49 mill/uL (4.7-6.1); RED CELL DISTRIBUTION WIDTH 19.1 % (11.6-14.6)
[2022-03-11 02:13] LABS: PLATELET ESTIMATE NORMAL
[2022-03-11] MEDS ORDERED: IBUP-2028 MT (05:04)
[2022-03-11 05:38] VITALS: BP 130/68
== END 2022-03-11 05:38 | disposition home or self-care (01) ==
LOC: ER 23:37
DX: K52.9 Noninfective gastroenteritis and colitis, unspecified (principal); D64.9 Anemia, unspecified; I10 Essential (primary) hypertension; E11.9 Type 2 diabetes mellitus without complications
CPT/HCPCS: 36415; 71045; 74176; 80053; 83605; 83690; 84484; 85025; 93005; 96374; 99285; J2270

== ENCOUNTER 2022-03-23 22:02 | Emergency (ER) | payer OTHER ==
[~2022-03-23] VITALS: Ht 175.3 cm; Wt 75.0 kg
[2022-03-23 23:04] VITALS: BP 162/96
[2022-03-24] MEDS ORDERED: DIPHENHYDRAMINE 25MG CAPSULE PO ONE (03:15)
[2022-03-24] MEDS ORDERED: AMMONIUM LACTATE 12% LOTION 240ML TOP SCH (03:15)
== END 2022-03-24 03:30 | disposition home or self-care (01) ==
LOC: ER 22:02
DX: F10.229 Alcohol dependence with intoxication, unspecified (principal); Y90.0 Blood alcohol level of less than 20 mg/100 ml; L20.9 Atopic dermatitis, unspecified; L29.9 Pruritus, unspecified; E11.9 Type 2 diabetes mellitus without complications; I10 Essential (primary) hypertension; F14.10 Cocaine abuse, uncomplicated; Z79.899 Other long term (current) drug therapy
CPT/HCPCS: 99282

== ENCOUNTER 2022-03-30 17:30 | Emergency (ER) | payer OTHER ==
[~2022-03-30] VITALS: Ht 175.3 cm; Wt 60.0 kg
[2022-03-30 17:38] VITALS: BP 123/83
[2022-03-30] MEDS ORDERED: MAGNESIUM/ALUMINUM HYDROXIDE/SIMETHICONE 30ML UDC PO STA (22:57)
[2022-03-30] MEDS ORDERED: VISCOUS LIDOCAINE 2% 15 ML UDC PO STA (22:57)
[2022-03-30] MEDS ORDERED: ONDANSETRON 4MG ODT PO STA (22:57)
[2022-03-31 00:11] LABS: MEAN CORPUSCULAR HEMOGLOBIN 22.1 pg (28.0-32.0)
[2022-03-31 00:15] LABS: BASOPHILS % 0.9 % (0.0-2.0); EOSINOPHILS % 7.2 % (0.0-5.0); HEMATOCRIT. 26.4 % (42.0-52.0); HEMOGLOBIN. 8.3 g/dL (14.0-18.0); MEAN CORPUSCULAR VOLUME 70.1 fL (80.0-94.0); MONOCYTES % 7.6 % (2.0-8.0); NEUTROPHILS % 44.3 % (40.0-76.0); PLATELET 320 x1000/uL (130-400); RED BLOOD CELL COUNT 3.77 mill/uL (4.7-6.1); RED CELL DISTRIBUTION WIDTH 18.9 % (11.6-14.6)
[2022-03-31 00:21] LABS: CHLORIDE 109 mEq/L (98-107)
[2022-03-31] MEDS ORDERED: PROT40 MT (03:07)
== END 2022-03-31 04:37 | disposition home or self-care (01) ==
LOC: ER 17:30
DX: K92.2 Gastrointestinal hemorrhage, unspecified (principal); F10.229 Alcohol dependence with intoxication, unspecified; E11.9 Type 2 diabetes mellitus without complications; I10 Essential (primary) hypertension; F14.10 Cocaine abuse, uncomplicated; Y90.0 Blood alcohol level of less than 20 mg/100 ml; Z88.0 Allergy status to penicillin; Z79.899 Other long term (current) drug therapy
CPT/HCPCS: 36415; 71045; 80053; 83690; 85025; 86850; 86900; 86901; 93005; 99285; Q0162

== ENCOUNTER 2022-04-04 19:22 | Emergency (ER) | payer OTHER ==
[~2022-04-04 19:22] MED LIST changes: +PROT40 MT
[2022-04-07] MEDS ORDERED: TOPUD PO (06:46)
== END 2022-04-04 20:18 | disposition left against medical advice (07) ==
LOC: ER 19:22
DX: Z53.21 Procedure and treatment not carried out due to patient leaving prior to being seen by health care provider (principal)

== ENCOUNTER 2022-04-06 18:46 | Emergency (ER) | payer OTHER ==
[~2022-04-06] VITALS: Ht 185.4 cm; Wt 89.0 kg
[2022-04-06 23:54] LABS: BASOPHILS % 1.1 % (0.0-2.0); EOSINOPHILS % 7.2 % (0.0-5.0); HEMATOCRIT. 26.7 % (42.0-52.0); HEMOGLOBIN. 8.3 g/dL (14.0-18.0); MEAN CORPUSCULAR HEMOGLOBIN 21.5 pg (28.0-32.0); MEAN CORPUSCULAR VOLUME 69.3 fL (80.0-94.0); MONOCYTES % 9.3 % (2.0-8.0); NEUTROPHILS % 47.4 % (40.0-76.0); PLATELET 438 x1000/uL (130-400); RED BLOOD CELL COUNT 3.85 mill/uL (4.7-6.1); RED CELL DISTRIBUTION WIDTH 18.6 % (11.6-14.6)
[2022-04-07 00:04] LABS: CHLORIDE 106 mEq/L (98-107)
[2022-04-07 02:19] LABS: PLATELET ESTIMATE SLIGHTLY INCREASED
[2022-04-07] MEDS ORDERED: TOPUD PO (06:46)
[2022-04-07 06:58] VITALS: BP 112/75
== END 2022-04-06 22:35 | disposition home or self-care (01) ==
LOC: ER 18:46
DX: R07.89 Other chest pain (principal); R00.0 Tachycardia, unspecified; I10 Essential (primary) hypertension; G40.909 Epilepsy, unspecified, not intractable, without status epilepticus; E11.9 Type 2 diabetes mellitus without complications; F10.20 Alcohol dependence, uncomplicated; Y90.9 Presence of alcohol in blood, level not specified; Z88.0 Allergy status to penicillin
CPT/HCPCS: 36415; 71045; 80053; 84484; 85025; 85044; 93005; 99285

== ENCOUNTER 2022-04-07 18:04 | Emergency (ER) | payer OTHER ==
[~2022-04-07] VITALS: Ht 175.3 cm; Wt 73.0 kg
[~2022-04-07 18:04] MED LIST changes: +TOPUD PO
[2022-04-07 18:09] VITALS: BP 133/96
[2022-04-07] MEDS ORDERED: ACETAMINOPHEN 325MG TABLET PO ONE (23:30)
[2022-04-07 23:42] LABS: CHLORIDE 108 mEq/L (98-107)
[2022-04-07 23:43] LABS: BASOPHILS % 1.3 % (0.0-2.0); EOSINOPHILS % 6.7 % (0.0-5.0); HEMATOCRIT. 24.9 % (42.0-52.0); HEMOGLOBIN. 7.7 g/dL (14.0-18.0); LYMPHOCYTES % 31.8 % (20.0-50.0); MEAN CORPUSCULAR HEMOGLOBIN 21.1 pg (28.0-32.0); MEAN CORPUSCULAR VOLUME 68.5 fL (80.0-94.0); MEAN PLATELET VOLUME 7.1 fl (7.4-10.4); MONOCYTES % 8.9 % (2.0-8.0); NEUTROPHILS % 51.3 % (40.0-76.0); PLATELET 431 x1000/uL (130-400); RED BLOOD CELL COUNT 3.63 mill/uL (4.7-6.1); RED CELL DISTRIBUTION WIDTH 18.4 % (11.6-14.6)
== END 2022-04-08 00:16 | disposition home or self-care (01) ==
LOC: ER 18:04
DX: R06.02 Shortness of breath (principal); R07.89 Other chest pain; R00.0 Tachycardia, unspecified; E11.9 Type 2 diabetes mellitus without complications; G40.909 Epilepsy, unspecified, not intractable, without status epilepticus; F19.10 Other psychoactive substance abuse, uncomplicated; Z79.899 Other long term (current) drug therapy
CPT/HCPCS: 36415; 71045; 80053; 85025; 85044; 93005; 99285

== ENCOUNTER 2022-04-08 19:34 | Emergency (ER) | payer OTHER ==
[~2022-04-08] VITALS: Ht 175.3 cm; Wt 62.0 kg
[2022-04-08] MEDS ORDERED: ASPIRIN 81MG TABLET PO ONE (22:00)
[2022-04-09 02:57] LABS: CHLORIDE 108 mEq/L (98-107)
[2022-04-09 03:00] VITALS: BP 134/80
[2022-04-09 03:21] LABS: BASOPHILS % 1.3 % (0.0-2.0); EOSINOPHILS % 8.3 % (0.0-5.0); HEMATOCRIT. 27.7 % (42.0-52.0); HEMOGLOBIN. 8.6 g/dL (14.0-18.0); LYMPHOCYTES % 34.1 % (20.0-50.0); MEAN CORPUSCULAR HEMOGLOBIN 21.6 pg (28.0-32.0); MEAN CORPUSCULAR VOLUME 69.4 fL (80.0-94.0); MONOCYTES % 9.6 % (2.0-8.0); NEUTROPHILS % 46.7 % (40.0-76.0); PLATELET 439 x1000/uL (130-400); RED BLOOD CELL COUNT 3.99 mill/uL (4.7-6.1); RED CELL DISTRIBUTION WIDTH 18.3 % (11.6-14.6)
[2022-04-09 03:25] LABS: PLATELET ESTIMATE NORMAL
[2022-04-09] MEDS ORDERED: MAGNESIUM/ALUMINUM HYDROXIDE/SIMETHICONE 30ML UDC PO STA (05:36)
[2022-04-09] MEDS ORDERED: DICYCLOMINE 10 MG/5 ML ORAL SYR PO STA (05:36)
[2022-04-09 06:16] LABS: ETHANOL BLOOD 145 mg/dL
[2022-04-09] MEDS ORDERED: DIPHENHYDRAMINE 25MG CAPSULE PO ONE (06:30)
== END 2022-04-09 06:49 | disposition home or self-care (01) ==
LOC: ER 19:34
DX: R10.13 Epigastric pain (principal); R07.89 Other chest pain; F10.129 Alcohol abuse with intoxication, unspecified; E11.9 Type 2 diabetes mellitus without complications; I10 Essential (primary) hypertension; G40.909 Epilepsy, unspecified, not intractable, without status epilepticus; D57.1 Sickle-cell disease without crisis; F14.10 Cocaine abuse, uncomplicated; Y90.6 Blood alcohol level of 120-199 mg/100 ml; Z88.0 Allergy status to penicillin
CPT/HCPCS: 36415; 80053; 80320; 83880; 84484; 85025; 93005; 99284; G0480

== ENCOUNTER 2022-04-12 14:24 | Emergency (ER) | payer OTHER ==
[~2022-04-12] VITALS: Ht 175.3 cm; Wt 80.0 kg
[2022-04-12 14:35] VITALS: BP 160/98
[2022-04-12] MEDS ORDERED: HYDR-3782 MT (16:38)
[2022-04-12] MEDS ORDERED: COLL226C TP (16:38)
[2022-04-12] MEDS ORDERED: PETR85OI TP (16:38)
== END 2022-04-12 17:07 | disposition home or self-care (01) ==
LOC: ER 14:37
DX: L20.9 Atopic dermatitis, unspecified (principal); F10.229 Alcohol dependence with intoxication, unspecified; E11.9 Type 2 diabetes mellitus without complications; I10 Essential (primary) hypertension; F14.10 Cocaine abuse, uncomplicated; Z79.899 Other long term (current) drug therapy; Y90.0 Blood alcohol level of less than 20 mg/100 ml
CPT/HCPCS: 99281

== ENCOUNTER 2022-04-16 18:52 | Emergency (ER) | payer OTHER ==
[~2022-04-16] VITALS: Ht 167.6 cm; Wt 80.0 kg
[~2022-04-16 18:52] MED LIST changes: +COLL226C TP; +PETR85OI TP
[2022-04-16 20:26] LABS: HEMATOCRIT. 26.5 % (42.0-52.0); HEMOGLOBIN. 8.1 g/dL (14.0-18.0); MEAN CORPUSCULAR VOLUME 68.4 fL (80.0-94.0); MEAN PLATELET VOLUME 6.6 fl (7.4-10.4); PLATELET 380 x1000/uL (130-400); RED BLOOD CELL COUNT 3.87 mill/uL (4.7-6.1); RED CELL DISTRIBUTION WIDTH 18.2 % (11.6-14.6)
[2022-04-16 20:31] LABS: CHLORIDE 106 mEq/L (98-107)
[2022-04-16 20:52] LABS: PLATELET ESTIMATE NORMAL
[2022-04-16] MEDS ORDERED: ACETAMINOPHEN 325MG TABLET PO ONE (23:45)
[2022-04-16] MEDS ORDERED: PROT40 MT (23:46)
[2022-04-16] MEDS ORDERED: PERM60CR4 TP (23:46)
[2022-04-16] MEDS ORDERED: TOPUD MT (23:46)
[2022-04-16 23:49] LABS: ETHANOL BLOOD 263 mg/dL
[2022-04-17] MEDS ORDERED: FAMOTIDINE 20MG TABLET PO NR
[2022-04-17 00:15] VITALS: BP 150/96
== END 2022-04-17 00:35 | disposition home or self-care (01) ==
LOC: ER 18:52
DX: R07.89 Other chest pain (principal); F14.10 Cocaine abuse, uncomplicated; I10 Essential (primary) hypertension; Z88.0 Allergy status to penicillin; Z79.899 Other long term (current) drug therapy
CPT/HCPCS: 36415; 71045; 80053; 80320; 83880; 84484; 85025; 93005; 99285; G0480

== ENCOUNTER 2022-05-05 02:42 | Emergency (ER) | payer OTHER ==
[~2022-05-05] VITALS: Ht 177.8 cm; Wt 67.5 kg
[2022-05-05 02:52] VITALS: BP 137/112
== END 2022-05-05 08:13 | disposition left against medical advice (07) ==
LOC: ER 02:42
DX: Z53.21 Procedure and treatment not carried out due to patient leaving prior to being seen by health care provider (principal); I49.9 Cardiac arrhythmia, unspecified
CPT/HCPCS: 93005

== ENCOUNTER 2022-05-12 20:41 | Emergency (ER) | payer OTHER ==
[~2022-05-12] VITALS: Ht 175.3 cm; Wt 67.2 kg
[2022-05-13 00:28] LABS: HEMATOCRIT. 27.2 % (42.0-52.0); HEMOGLOBIN. 8.4 g/dL (14.0-18.0); MEAN CORPUSCULAR HEMOGLOBIN 21.3 pg (28.0-32.0); MEAN CORPUSCULAR VOLUME 68.6 fL (80.0-94.0); MEAN PLATELET VOLUME 6.5 fl (7.4-10.4); PLATELET 385 x1000/uL (130-400); RED BLOOD CELL COUNT 3.96 mill/uL (4.7-6.1); RED CELL DISTRIBUTION WIDTH 21.1 % (11.6-14.6)
[2022-05-13 00:32] LABS: CHLORIDE 105 mEq/L (98-107)
[2022-05-13 01:19] LABS: PLATELET ESTIMATE NORMAL
[2022-05-13] MEDS ORDERED: AMLO5TAB88 MT (01:53)
[2022-05-13] MEDS ORDERED: ACETAMINOPHEN 325MG TABLET PO ONE (02:00)
[2022-05-13 03:45] VITALS: BP 149/89
[2022-05-13] MEDS ORDERED: ACETAMINOPHEN 325MG TABLET PO NR (04:00)
== END 2022-05-13 04:00 | disposition home or self-care (01) ==
LOC: ER 20:41
DX: M79.10 Myalgia, unspecified site (principal); I10 Essential (primary) hypertension; D57.1 Sickle-cell disease without crisis; F14.10 Cocaine abuse, uncomplicated; Z87.828 Personal history of other (healed) physical injury and trauma; Z98.890 Other specified postprocedural states; Z88.0 Allergy status to penicillin
CPT/HCPCS: 36415; 71045; 80053; 83880; 84484; 85025; 93005; 99285

== ENCOUNTER 2022-05-21 10:27 | Emergency (ER) | payer OTHER ==
[~2022-05-21] VITALS: Ht 177.8 cm; Wt 73.0 kg
[~2022-05-21 10:27] MED LIST changes: +AMLO5TAB88 MT
[2022-05-21 10:30] VITALS: BP 142/102
== END 2022-05-21 10:58 | disposition home or self-care (01) ==
LOC: ER 10:34
DX: F10.129 Alcohol abuse with intoxication, unspecified (principal); Y90.9 Presence of alcohol in blood, level not specified; I10 Essential (primary) hypertension; F14.90 Cocaine use, unspecified, uncomplicated
CPT/HCPCS: 99283

== ENCOUNTER 2022-05-29 11:41 | Emergency (ER) | payer OTHER ==
[~2022-05-29] VITALS: Ht 165.1 cm; Wt 63.5 kg
[2022-05-29 11:44] VITALS: BP 119/88
== END 2022-05-29 12:14 | disposition home or self-care (01) ==
LOC: ER 11:41
DX: R25.1 Tremor, unspecified (principal); F14.10 Cocaine abuse, uncomplicated; F10.129 Alcohol abuse with intoxication, unspecified; E11.9 Type 2 diabetes mellitus without complications; Z88.0 Allergy status to penicillin; Z79.899 Other long term (current) drug therapy; Z86.59 Personal history of other mental and behavioral disorders; Y90.9 Presence of alcohol in blood, level not specified
CPT/HCPCS: 99283

== ENCOUNTER 2022-06-15 12:12 | Emergency (ER) | payer OTHER ==
[~2022-06-15] VITALS: Ht 175.3 cm; Wt 68.0 kg
[2022-06-15 12:14] VITALS: BP 152/98
== END 2022-06-15 13:04 | disposition left against medical advice (07) ==
LOC: ER 12:12
DX: S09.8XXA Other specified injuries of head, initial encounter (principal); F10.129 Alcohol abuse with intoxication, unspecified; Y90.9 Presence of alcohol in blood, level not specified; F14.90 Cocaine use, unspecified, uncomplicated; W01.198A Fall on same level from slipping, tripping and stumbling with subsequent striking against other object, initial encounter; Y93.01 Activity, walking, marching and hiking; Y92.488 Other paved roadways as the place of occurrence of the external cause
CPT/HCPCS: 99283